=== PATIENT | male | born 1940 | race Caucasian/White ===

== ENCOUNTER 2022-06-21 14:57 | Outpatient (CLI) | payer MEDICARE, BC, SELFPAY | END 2022-06-21 14:58 | disposition home or self-care (01) | LOC: LKVREF 14:59 | PROVIDERS: PCP Internal Medicine; Visit Provider Otolaryngology | DX: Z00.00 Encounter for general adult medical examination without abnormal findings (principal); E78.5 Hyperlipidemia, unspecified; R05.9 Cough, unspecified | CPT/HCPCS: 84443 ==

== ENCOUNTER 2022-08-16 08:14 | Emergency (ER) | payer MEDICARE, BC, SELFPAY ==
[2022-08-16 08:21] VITALS: BP 181/79; PULSE 69; RESP 18; TEMP 36.2; O2SAT 96; BMI 23.1
--- NOTE | 2022-08-16 08:26 | CRLHL7_ITS ---
For Patients: As a result of the Century Cures Act, medical imaging exams and procedure reports are released immediately into your electronic medical record. You may view this report before your referring provider. If you have questions, please contact your health care provider. Indication: Trauma Technique: Three views of the right wrist were acquired Comparison: August 07, 2018 Findings: Bone mineral density is decreased. There arthritic changes primarily the 1st carpometacarpal joint. A fracture of the distal right radius is noted. This is comminuted, impacted and dorsally angulated and source displaced. There is positive ulnar variance. No definite distal ulnar fracture. Impression: Distal right radius fracture as described Dictated by Ernesto Yang MD @ 08/16/2022 9:11:16 AM (Electronically Signed)
--- NOTE | 2022-08-16 08:39 | CRLHL7_ITS ---
For Patients: As a result of the Century Cures Act, medical imaging exams and procedure reports are released immediately into your electronic medical record. You may view this report before your referring provider. If you have questions, please contact your health care provider. INDICATION: Trauma with laceration COMPARISON: September 09, 2021 TECHNIQUE: CT examination of the head was performed as axial sections without intravenous contrast. Images were obtained from the vertex of the skull through the skull base. Please note that all CT scans at this facility use dose modulation, iterative reconstruction, and/or weight-based dosing when appropriate to reduce radiation dose to as low as reasonably achievable. FINDINGS: The brain shows no sign of mass lesion, mass effect, hemorrhage, or edema. There are involutional changes. There is mild cortical atrophy and there is mild white matter disease. There is no hydrocephalus. The visualized portions of the orbits are normal in appearance. The osseous structures are normal in appearance with no sign of abnormality in the skull base or calvarium. IMPRESSION: Involutional changes consisting of atrophy white matter disease. The calvaria appear intact. There is no acute intracranial posttraumatic finding. Please note that all CT scans at this facility use dose modulation, iterative reconstruction, and/or weight-based dosing when appropriate to reduce radiation dose to as low as reasonably achievable. Dictated by Ernesto Yang MD @ 08/16/2022 9:32:08 AM (Electronically Signed)
[2022-08-16] MEDS: ACETAMINOPHEN 500 MG TABLET 1000 MG PO (09:11)
[2022-08-16] MEDS: LIDOCAINE 1 % PF 30 ML INJECTION (09:15)
--- NOTE | 2022-08-16 10:54 | CRLHL7_ITS ---
For Patients: As a result of the Cures Act, medical imaging exams and procedure reports are released immediately into your electronic medical record. You may view this report before your referring provider. If you have questions, please contact your health care provider. Indication: POST REDUCTION Technique: Two views right wrist Comparison: 08/16/2022 Findings: Closed reduction of the distal radial metaphyseal fracture with improved alignment. Mild persistent dorsal angulation of the distal radial articular surface noted. Overlying cast is present. Fracture of the ulnar styloid again noted. Degenerative joint disease. Impression: Improved alignment of the comminuted and displaced intra-articular and dorsally impacted distal radial metaphyseal fracture status post closed reduction. Dictated by Otoniel Hobbs MD @ 08/16/2022 11:25:23 AM (Electronically Signed)
--- NOTE | 2022-08-16 15:19 | ED_ITS ---
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 Unfortunately falls are her what happens with this, and yesterday he fell, after getting up, landing on his right outstretched hand, he was caring a plate and thinks he might hit the plate against his head, but is unsure if this actually what happened. He never lost consciousness, denies any head or neck pain, but presented here to the ER with the right deformed wrist. Denies any numbness tingling weakness, does notice he has a small laceration on his head, is not on any anticoagulants, denies neck pain or any other concerns such as headache or amnesia or nausea vomiting MD complaint: injury to: right Onset (ago): hour(s) Other injuries: head Hand dominance: Right Place: home Severity: moderate Relieving factors: cold therapy Exacerbating factors: none Context: fall Associated symptoms: denies other symptoms Treatments prior to arrival: cold therapy Related Data Home Medications Medication Instructions Recorded Confirmed SE-fgxovxkpvpe-smofbw ox-Zn ER 500 tab PO BID 04/26/22 06/21/22 mcg-750 mg-1.5 mg-25 mg tablet,ER brimonidine 0.2 % eye drops 1 drp ophthalmic (eye) BID 04/26/22 06/21/22 calcium carbonate-vitamin D3 600 1,200 tab PO DAILY 04/26/22 06/21/22 mg-125 unit tablet cyanocobalamin (vitamin B-12) 500 1,000 mcg PO DAILY 04/26/22 06/21/22 mcg tablet fluoxetine 10 mg tablet 10 mg PO .Bedtime 04/26/22 06/21/22 latanoprost 0.005 % eye drops 1 drp ophthalmic (eye) .Bedtime 04/26/22 06/21/22 multivitamin (Multiple Vitamins 1 tab PO QAM 04/26/22 06/21/22 tablet) omega-3 fatty acids 1,000 mg 1,000 mg PO QDAY 04/26/22 06/21/22 capsule omeprazole 20 mg capsule,delayed mg PO DAILY 04/26/22 06/21/22 release pyridostigmine bromide 30 mg tablet mg PO TID 04/26/22 06/21/22 simvastatin 40 mg tablet 40 mg PO .Bedtime 04/26/22 06/21/22 timolol maleate 0.25 % eye drops 1 drp ophthalmic (eye) BID 04/26/22 06/21/22 trazodone 50 mg tablet mg PO .Bedtime 04/26/22 06/21/22 Allergies Allergy/AdvReac Type Severity Reaction Status Date / Time No Known Allergies Allergy Verified 06/21/22 14:15 Review of Systems Status of ROS: Reports: 6 or more systems reviewed and unremarkable except as noted in History and below [facility] Surgical History History of squamous cell carcinoma in situ (SCCIS) of skin History of tonsillectomy (~1950) History of total knee replacement (2000) Social History Smoking Status: Former smoker Do you use any of these nicotine containing products: None How often do you have a drink containing alcohol: never How often do you have six or more drinks on one occasion: Never AUDIT-C Alcohol total score: 0 Non-prescribed substance use: denies use Exam Narrative: Exam Narrative: On examination patient is in no apparent distress sitting in room 5, there is a dinner fork deformity of his right wrist, his elbow moves for full range of motion, as does his fingers. His shoulder also has full range of motion, is a small bruise laceration just above his right eye, his neck is full range of motion of flexion extension lateral flexion rotation no cervical spine tenderness no midfacial tenderness, mouth opening normal, TMs are normal his pupils are equal round reactive to light. There is no tenderness noted over his a chest on palpation percussion is good air entry, heart sounds are normal, no trauma over his back, thoracic and lumbar spine palpate normally. Given what I see, I did do x-rays, which show a typical distal radial fracture with a dorsal fragment dorsally displaced and impacted. There is also small fracture noted the ulnar styloid. Given this I would recommend a reduction of this fracture, he has good pulses in his hand, both radial pulses are normal, and cap refill was normal his sensation is normal over all the signature dermatomal areas of his hand, with good 1st finger thumb opposition. 1% xylocaine without epinephrine is infused into a hematoma block on the dorsum of his wrist, this was done sterilely, resulted in fair anesthesia, he was also given acetaminophen. I was able to reduce the fracture 2 more amiable reduction, on review of the x-ray post reduction there was improvement, but there is still some very mild angulation and displacement. Post reduction fingers move normally, pulses were normal, radial and good cap refill are noted, sensation is normal over his hand, he is placed in a splint, short-arm AP, and sling, follow-up with orthopedics is made, let was applied to his head wound, but this was shown to be more of a scratch, and no laceration repair needed. Const: Vital Signs, click to edit/add: Vital Signs - 24 hr 08/16/22 08:21 Temperature 97.2 F L Pulse Rate [Left P ulse Oximeter] 69 Respiratory Rate 18 Blood Pressure [Le ft Upper Arm] 181/79 H Pulse Oximetry 96 Oxygen Delivery Me thod Room Air Course Vital Signs Vital signs: Initial Vital Signs Temperature 97.2 F L 08/16/22 08:21 Temperature Source Temporal Artery Scan 08/16/22 08:21 Pulse Rate 69 08/16/22 08:21 Respiratory Rate 18 08/16/22 08:21 Blood Pressure 181/79 H 08/16/22 08:21 Blood Pressure Mean 113 08/16/22 08:21 Blood Pressure Position Sitting 08/16/22 08:21 Pulse Oximetry 96 08/16/22 08:21 Oxygen Delivery Method 08/16/22 08:21 Vital Signs Temperature 97.2 F L 08/16/22 08:21 Pulse Rate 69 08/16/22 08:21 Respiratory Rate 18 08/16/22 08:21 Blood Pressure 181/79 H 08/16/22 08:21 Pulse Oximetry 96 08/16/22 08:21 Oxygen Delivery Method 08/16/22 08:21 Temperature 97.2 F L 08/16/22 08:21 Pulse Rate 69 08/16/22 08:21 Respiratory Rate 18 08/16/22 08:21 Blood Pressure 181/79 H 08/16/22 08:21 Pulse Oximetry 96 08/16/22 08:21 Oxygen Delivery Method 08/16/22 08:21 Discharge Plan Discharge Clinical Impression: Fracture of wrist, Laceration, Head injury Patient Disposition: Home w/ Parent or Adult Additional Instructions: Follow up appointment is scheduled at the [facility] on 08/18 with a 3:50pm arrival time. [address] [place] [address] Home rest use of sling for the next 3-4 days, follow-up with the orthopedic clinic as directed above. Tylenol/ibuprofen for the discomfort, Prescriptions: No Action pyridostigmine bromide 30 mg tablet PO TID omeprazole 20 mg capsule,delayed release(DR/EC) PO DAILY simvastatin 40 mg tablet 40 mg PO .Bedtime fluoxetine 10 mg tablet 10 mg PO .Bedtime trazodone 50 mg tablet PO .Bedtime NW-rbavjiqshfv-emrvnk ox-zinc 500-750-1.5-25 gkm-gz-iy-mg tablet,ext release multiphase PO BID multivitamin [Multiple Vitamins] Tablet 1 tab PO QAM latanoprost 0.005 % drops 1 drp ophthalmic (eye) .Bedtime timolol maleate 0.25 % drops 1 drp ophthalmic (eye) BID brimonidine 0.2 % drops 1 drp ophthalmic (eye) BID cyanocobalamin (vitamin B-12) 500 mcg tablet 1,000 mcg PO DAILY omega-3 fatty acids 1,000 mg capsule 1,000 mg PO QDAY calcium carbonate-vitamin D3 600-125 mg-unit tablet 1,200 tab PO DAILY Follow Up/Referrals: Fortino Handy MD [Staff Physician] - Lizzie Aj MD [Primary Care Provider] - Terrence Sierra MD [Staff Physician] - Stand Alone Forms: [facility] Info Instructions
== END 2022-08-16 12:07 | disposition home or self-care (01) ==
PROVIDERS: Emergency Provider Family Medicine; PCP Internal Medicine
DX: S52.501A Unspecified fracture of the lower end of right radius, initial encounter for closed fracture (principal); S52.614A Nondisplaced fracture of right ulna styloid process, initial encounter for closed fracture; W19.XXXA Unspecified fall, initial encounter
CPT/HCPCS: 25650; 70450; 73100; 73110; 93005; 99284; 99285; A9270; J2001

== ENCOUNTER 2022-08-29 07:10 | Day surgery (SDC) | payer MEDICARE, BC, SELFPAY ==
[2022-08-29] VITALS (11 sets, daily range): BP systolic 79–140; BP diastolic 35–70; PULSE 52–86; RESP 16; TEMP 35.9–36.2; O2SAT 92–100; BMI 23.6
[2022-08-29] MEDS: SODIUM CHLORIDE 0.9 % (FLUSH) 10 ML SYRINGE IVF (07:44)
[2022-08-29] MEDS: LACTATED RINGERS 1000 ML 1,000 ML 100 ML IV (07:44)
[2022-08-29] MEDS: fentaNYL 100 MCG/2 ML inj IVP (08:25)
[2022-08-29] MEDS: MIDAZOLAM HCL 1 MG/ML inj IVP (08:25)
--- NOTE | 2022-08-29 08:39 | SUR.PREOP ---
TIME?OUT:?0825 PT/RN/MDA?VERIFICATION?OF?SURGICAL?SITE,?PROCEDURE,?AND?CONSENT OBTAINED?PRIOR?TO?INVASIVE?PROCEDURE.
--- NOTE | 2022-08-29 09:08 | P.NB_ITS ---
Nerve Block Nerve Block Time Seen by Provider: 08:40 Date Seen: 08/29/22 Type of block requested by surgeon for post-operative analgesia: axillary Side: right Time out performed: Yes Verification of patient name: Yes Verification of date of : Yes Site marking: site marked Name of person performing procedure: Ollie Continuous monitoring Was continuous monitoring of O2 sat, B/P, monitor technician, recorded every 15 minutes?: Yes Procedure Checklist: sterile prep, needles and gloves Ultrasound guided. Images saved: Yes Medications given in 5ml increments after negative aspiration: Ropivicaine %: 0.5 mL: 30 Needle gauge: 22 Decadron (mg): 10 Precedex (mcg): 25 Patient tolerated procedure well: Yes Additional comments: Needle noted adjacent to nerve Block Charges Block Charge (with Pro Fee): Brachial Plexus Use of Ultrasound Machine for Block: Yes- US Guidance/pain block
--- NOTE | 2022-08-29 09:30 | CRLHL7_ITS ---
For Patients: As a result of the Cures Act, medical imaging exams and procedure reports are released immediately into your electronic medical record. You may view this report before your referring provider. If you have questions, please contact your health care provider. Indication: Right Distal Radius Fx, ORIF Technique: Two fluoroscopic images of the right wrist. Fluoroscopic time 33.1 seconds. IMPRESSION: Fluoroscopic guidance for open reduction internal fixation distal radial fracture. Dictated by Otoniel Hobbs MD @ 08/29/2022 11:26:58 AM (Electronically Signed)
[2022-08-29] MEDS: CEFAZOLIN 2 GM in 0.9 % SODIUM CHLORIDE Mini-bag 100 ML IVPB (09:35)
--- NOTE | 2022-08-29 10:35 | PM.ORPRC ---
Procedure Note Date of procedure: 08/29/22 Procedure: PREOPERATIVE DIAGNOSES: 1. Right distal radius fracture intraarticular with comminution and dorsal angulation/displacement - unstable POSTOPERATIVE DIAGNOSES: 1. Right distal radius fracture intraarticular with comminution and dorsal angulation/displacement - unstable, 3+ parts NAME OF OPERATION: 1. Right distal radius open reduction with internal fixation of intraarticular fracture (3+ parts) 2. 97280 - intraoperative fluoroscopy up to 1 hour. SURGEON: Fortino aHndy MD DIESEL POWER MECHANIC: Pk Kitchen - Of note, an education administrative assistant was critical for this case to aide in patient positioning, limb manipulation, tissue retraction, closure, and splinting. ANESTHESIA: Supraclavicular block IMPLANTS: Synthes dual column volar plate with 2.0 mm distal locking pegs and 2.4 and 2.7 mm locking and nonlocking proximal shaft screws, respectively. TOURNIQUET: 39 minutes at 225 torr. INDICATIONS: The patient is a pleasant, 82-year-old male who sustained a right wrist injury after a fall. They had difficulty with use of the extremity and deformity. Workup included xrays which revealed an unstable fracture. Given these findings, surgery was recommended to stablize the fracture. FINDINGS: Closed, comminuted, dorsally angulated and displaced distal radius fracture with intra-articular extension to the radial styloid region. PROCEDURE: Following a thorough discussion of risks, benefits, and alternatives, consent was obtained and the operative extremity was marked. The patient was brought to the operating room and placed supine on the operating table. Induction of anesthesia was achieved. Appropriate time out was performed identifying proper patient, site and procedure. 2 g IV Ancef was administered within 1 hour of incision preoperatively. The right upper extremity was prepped and draped in the appropriate sterile fashion using ChloraPrep prep. The limb was exsanguinated and the tourniquet inflated. A longitudinal incision was made overlying the FCR tendon. Sharp incision through skin and subcutaneous tissue allowed identification of the FCR tendon. The superficial sheath was sharply divided, the tendon retracted ulnarly, and the deep fascial sheath also released. The FPL was retracted ulnarly and the pronator quadratus was sharply released from the radial border of the radius and subperiosteally elevated. The fracture was encountered and cleared of interposed periosteum / fracture hematoma. A reduction was performed and the appropriate plate selected. Temporary stabilization allowed C-arm fluoroscopy to confirm proper fracture reduction and plate positioning. The oblong hole was filled with a nonlocking screw followed by multiple distal locking pegs being careful to keep these in subchondral bone and extraarticular. Finally, the remaining proximal shaft screws were drilled and placed. Fluoroscopic imaging confirmed the improved position and showed the fracture to be stable. At this stage, the wound was thoroughly irrigated with normal saline. Closure performed with 0 Vicryl for the pronator quadratus, followed by deflation of the tourniquet. All major bleeding points were cauterized. Closure was then completed with 3-0 Vicryl for the subcutaneous, and 4-0 statafix for subcuticular closure. Dressings were applied along with a volar/dorsal splint. The patient was awoken from anesthesia and transferred to PACU in stable condition. PLAN: 1. Elevate operative extremity. 2. Ice, acetominphen or ibuprofen PRN. 3. Percocet for pain as needed. 4. Follow up with PA visit in 10-16 days for wound check and splint removal and cast application. Should have a total of 3 weeks of immobilization following surgery. Therefore, follow-up at the 3 week loco postop for cast removal and initiate occupational therapy with brace at that time.
--- NOTE | 2022-08-29 11:03 | W.ANESCHARGE ---
Anesthesia Charges Start Date/Time Anesthesia Start Date: 08/29/22 Anesthesia Start Time: 09:23 Stop Date/Time Anesthesia Stop Date: 08/29/22 Anesthesia Stop Time: 11:03 Summary Emergency: No Extremes of Age: Over 70-CPT 99794
--- NOTE | 2022-08-29 11:56 | W.ANESCHARGE ---
Anesthesia Charges Start Date/Time Anesthesia Start Date: 08/29/22 Anesthesia Start Time: 09:23 Stop Date/Time Anesthesia Stop Date: 08/29/22 Anesthesia Stop Time: 11:03 Summary Emergency: No Extremes of Age: Over 70-CPT [id number]
--- NOTE | 2022-08-29 12:07 | SUR.PHASEII ---
Right arm dressing c/d/i. Right arm in sling.
== END 2022-08-29 12:30 | disposition home or self-care (01) ==
PROVIDERS: PCP Internal Medicine; Visit Provider Orthopaedic Surgery Sports Medicine
PROC: (CPT 25575; principal; 2022-08-29 09:30)
DX: S52.571A Other intraarticular fracture of lower end of right radius, initial encounter for closed fracture (principal)
CPT/HCPCS: 25609; 01830; 64415; 73100; 76000; 76942; 99100; A4580; C1713; J0690; J1100; J2250; J2704; J2795; J3010; J3490; J7120

== ENCOUNTER 2022-12-08 09:57 | Outpatient (CLI) | payer MEDICARE, BC, SELFPAY ==
[2022-12-08 11:22] LABS: Albumin* 3.9 g/dL (3.3-5.0)
[2022-12-08 11:23] LABS: Chloride* 108 mmol/L (96-114); Potassium* 4.7 mmol/L (3.6-5.1); Sodium* 140 mmol/L (135-149)
[2022-12-08 11:25] LABS: Carbon Dioxide* 30 mmol/L (20-32); Cholesterol* 134 mg/dL (90-199); Estimated Glomerular Filt Rate 75 ml/min
[2022-12-08 11:26] LABS: Alanine Aminotransferase* 19 U/L (4-50); Alkaline Phosphatase* 91 U/L (40-150); Aspartate Amino Transferase* 31 U/L (12-35); Bilirubin Total* 0.8 mg/dL (0.1-1.5); Blood Urea Nitrogen* 20 mg/dL (7-30); Calcium* 9.4 mg/dL (8.4-10.6); Glucose* 101 mg/dL (60-115); HDL Cholesterol* 55 mg/dL (>=40); LDL Cholesterol Calculated 63 mg/dL (<100); Total Protein* 6.5 g/dL (6.0-8.3); Triglycerides* 80 mg/dL (40-149)
[2022-12-10 09:37] LABS: Kappa Qnt Free Light Chains 23.35 mg/L (3.30-19.40); Kappa-Lambda Qt FLC W/ Ratio 1.77 (0.26-1.65); Lambda Qnt Free Light Chains 13.22 mg/L (5.71-26.30)
[2022-12-12 01:51] LABS: Albumin 3.72 g/dL (3.75-5.01); Alpha 1 Globulin 0.36 g/dL (0.19-0.46); Alpha 2 Globulin 0.73 g/dL (0.48-1.05); Immunofixation IFE Done; Total Protein, Serum 6.3 g/dL (6.3-8.2)
== END 2022-12-08 09:58 | disposition home or self-care (01) ==
LOC: NFLDREF 09:57
PROVIDERS: PCP Internal Medicine; Visit Provider Internal Medicine
DX: Z00.00 Encounter for general adult medical examination without abnormal findings (principal); E78.5 Hyperlipidemia, unspecified; D47.2 Monoclonal gammopathy; F41.9 Anxiety disorder, unspecified
CPT/HCPCS: 80053; 80061; 82784; 83520; 84155; 84165; 86334

== ENCOUNTER 2023-07-26 13:32 | Outpatient (CLI) | payer MEDICARE, BC, SELFPAY | END 2023-07-26 13:33 | disposition home or self-care (01) | PROVIDERS: PCP Internal Medicine; Visit Provider Internal Medicine | DX: R15.9 Full incontinence of feces (principal); E78.5 Hyperlipidemia, unspecified; R79.89 Other specified abnormal findings of blood chemistry; R19.7 Diarrhea, unspecified; R82.90 Unspecified abnormal findings in urine | CPT/HCPCS: 80053; 84443; 87086 ==

== ENCOUNTER 2023-12-19 10:08 | Outpatient (CLI) | payer MEDICARE, BC, SELFPAY ==
--- OUTSIDE RECORDS SUMMARY | 2023-12-20 06:06 | XMS_ITS | Clinical Summary ---
Author Name Unknown Organization [facility] Address [address] [place] [id number] Care Team Providers Care Fitness Coordinator Name Role Phone Lizzie Aj MD Primary Care Provider [phone] Source Comments You are receiving this document as you are listed as the primary care provider,follow-up provider, or the patient has been referred to you for consultation.This is in compliance with the Medicare and[facility] E[facility] Incentive Program,which states Providers who transition their patient to another setting of careor provider of care or refers their patient to another provider of care shouldprovide summary care record for each transition of care or referral. [facility] Allergies No known active allergies Medications Medication Sig Dispensed Refills Start Date End Date Status pramipexole (MIRAPEX) 0.25 MG tablet Take 0.25 mg by mouth three times a day. Active FLUoxetine (PROZAC) 10 MG tablet Take 10 mg by mouth daily. Pharmacy may substitute capsule as needed based on insurance. Active MELATONIN-PYRIDOXINE OR Active simvastatin (ZOCOR) 40 MG tablet Take 40 mg by mouth daily at bedtime. Active omeprazole (PRILOSEC) 20 MG capsule Take 20 mg by mouth daily. Take 1 hour before a meal. Active traZODone (DESYREL) 50 MG tablet Take 50 mg by mouth daily at bedtime. Active CALCIUM CARBONATE-VITAMIN D OR Active latanoprost (XALATAN) 0.005 % eye drop solution 1 Drop every evening. Active ascorbic acid (AKA VITAMIN C) 100 MG tablet Take 1,000 mg by mouth daily. Active Cyanocobalamin 1000 MCG CAPS Active raNITIdine (ZANTAC) 150 MG tablet Take 150 mg by mouth two times a day. Active multivitamin with minerals (CERTAVITE,MYADEC) tablet Take 1 Tablet by mouth daily. Active omega-3 fatty acids (MAXEPA,FISHOIL) 1000 MG capsule Take 2 g by mouth daily. Active Multiple Vitamins-Minerals (PRESERVISION AREDS 2+MULTI VIT OR) Active ferrous sulfate 325 (65 Fe) MG tablet Take 325 mg by mouth daily with breakfast. Active levETIRAcetam (KEPPRA) 250 MG tablet Take 250 mg by mouth two times a day. 3 06/29/2018 Active Active Problems Problem Noted Date Diagnosed Date Tinnitus of left ear 08/22/2018 Gait instability 08/22/2018 DJD (degenerative joint disease) 04/20/2012 Hyperlipidemia 04/20/2012 S/P hip replacement 04/20/2012 Overview: Overview: R, 04-16-12 Social History Tobacco Use Types Packs/Day Years Used Date Smoking Tobacco: Never Assessed Sex and Gender Information Value Date Recorded Sex Assigned at Not on file Gender Identity Not on file Sexual Orientation Not on file Last Filed Vital Signs Vital Sign Reading Time Taken Comments Blood Pressure 132/71 08/22/2018 10:17 AM CDT Pulse 68 08/22/2018 10:17 AM CDT Temperature - - Respiratory Rate - - Oxygen Saturation - - Inhaled Oxygen Concentration - - Weight 87.5 kg (193 lb) 08/22/2018 10:17 AM CDT Height 190.5 cm (6' 3) 08/22/2018 10:17 AM CDT Body Mass Index 24.12 08/22/2018 10:17 AM CDT Plan of Treatment Health Maintenance Due Date Last Done Comments Medicare Annual Wellness Visit 1940 COVID-19 Vaccine ( season) 2023 12/26/2020, 12/05/2020 Influenza (#1) 2023 08/25/2020, 04/2019, 08/29/2018, Additional history exists DTaP/Tdap/Td (3 - Tdap) 03/30/2025 03/30/2015, 04/09 Pneumococcal 65+ Yrs Completed 08/05/2016, 03/30/20 15 Zoster/Shingles Completed 05/15/2019, /, 02/27/2007 HepA Aged Out No longer eligi ble based on patient's age to complete this topic HepB Aged Out No longer eligi ble based on patient's age to complete this topic Hib Aged Out No longer eligi ble based on patient's age to complete this topic IPV (Polio) Aged Out No longer eligi ble based on patient's age to complete this topic MCV4 Aged Out No longer eligi ble based on patient's age to complete this topic Care Teams Fitness Coordinator Relationship Specialty Start Date End Date Lizzie Aj MD [address] [place] [address] PCP - General Internal Medicine 08/06/18
--- OUTSIDE RECORDS SUMMARY | 2023-12-20 06:06 | XMS_ITS | Clinical Summary ---
Author Name Unknown Organization [facility] Address [place], [place] [address] Care Team Providers Care Circuit Design Engineer Name Role Phone Lizzie Aj MD Primary Care Provider [phone]- [phone] Allergies No known active allergies Medications Medication Sig Dispensed Refills Start Date End Date Status Ad-Zk-Vliamnq-Biotin -Vit D3-FA 200-450-400 mg-mcg-unit tab Take by mouth. 0 04/01/2014 Activ e omega-3 fatty acids-vitamin E (FISH OIL) 1,000 mg cap Take by mouth. 0 04/01/2014 Active simvastatin (ZOCOR) 40 mg tablet Take 1 tablet by mouth at bedtime. 0 06/02/2016 Active Vit A,C,A-Puvq-Sqquke (PRESERVISION AREDS) 14,320-226-200 vops-bh-dtbg cap Take by mouth. 0 06/02/2016 Acti ve ascorbic acid, vitamin C, (VITAMIN C) 1,000 mg tablet Take 1 tablet by mouth once daily. 0 06/02/2016 Active cholecalciferol (VITAMIN D-3) 2,000 unit capsule Take 1 capsule by mouth once daily. 0 06/02/2016 Active Cyanocobalamin (VITAMIN B-12) 2,000 mcg tablet Take 1 tablet by mouth once daily. 0 06/02/2016 Active ranitidine (ZANTAC) 150 mg tablet Take 1 tablet by mouth 2 times daily. 0 06/02/2016 Active calcium carbonate-cholecalci ferol, 600mg-200 units, (CALCIUM 600 + D,3,) tablet Take 1 tablet by mouth 2 times daily with meals. 0 06/02/2016 Active omeprazole (PRILOSEC) 20 mg Delayed-Release capsuleIndications:A cute gastritis without hemorrhage TAKE 1 CAPSULE BY MOUTH ONCE DAILY BEFORE A MEAL. 90 capsule 3 07/27/2016 Active traZODone (DESYREL) 50 mg tablet Take 1 tablet by mouth at bedtime. 0 04/12/2018 Active Pramipexole (MIRAPEX ER) 0.375 mg Extended-Release tablet Take by mouth. 0 04/12/2018 Active FLUoxetine (SARAFEM) 20 mg tablet Take 1 tablet by mouth every morning. 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 04/20/2012 Overview: Colonoscopy 02/2010 mild ileitis repeat in 5 years Social History Tobacco Use Types Packs/Day Years Used Date Smoking Tobacco: Former Smokeless Tobacco: Never Tobacco Cessation:Counseling Given: Yes Comments:over 40 years ago Alcohol Use Standard Drinks/Week Comments Yes 7 (1 standard drink = 0.6 oz pur e alcohol) occ Sex and Gender Information Value Date Recorded Sex Assigned at Not on file Gender Identity Not on file Sexual Orientation Not on file Obstetrics History Last Filed Vital Signs Vital Sign Reading Time Taken Comments Blood Pressure 122/60 04/12/2018 2:28 PM CDT Pulse 74 04/12/2018 2:28 PM CDT Temperature 36.4 ??C (97.5 ??F) 08/24/2016 8:58 AM CD T Respiratory Rate 20 04/25/2012 3:29 PM CDT Oxygen Saturation 97% 04/12/2018 2:28 PM CDT Inhaled Oxygen Concentration - - Weight 86.9 kg (191 lb 9.6 oz) 04/12/2018 2:28 P M CDT Height 189.5 cm (6' 2.6) 06/02/2016 10:32 AM CD T Body Mass Index 24.21 06/02/2016 10:32 AM CDT Plan of Treatment Health Maintenance Due Date Last Done Comments Tdap 1950 Depression screening for age 12+ 1951 Tetanus booster 1959 Zoster (shingles) series for age 50+ (1 of 2) 1989 Pneumococcal series for age 65+ (1 of 1 - PCV) 2004 BMI (ht and wt on same day) for age 18+ 06/02/2017 06/02/2016 COVID-19 vaccine series ( season) 2023 08/05/2021, 12/26/2020, 12/05/2020 Influenza for age 65+ 06/30/2023 Care Teams Circuit Design Engineer Relationship Specialty Start Date End Date Lizzie jA MD [address] [place] [address] PCP - General Internal Medicine 06/07/16
== END 2023-12-19 10:09 | disposition home or self-care (01) ==
PROVIDERS: PCP Internal Medicine; Referring Provider Internal Medicine; Visit Provider Internal Medicine
DX: E78.5 Hyperlipidemia, unspecified (principal); D47.2 Monoclonal gammopathy
CPT/HCPCS: 80053; 80061; 82784; 83520; 84155; 84165; 86334

== ENCOUNTER 2024-03-11 12:17 | Emergency (ER) | payer MEDICARE, BC, SELFPAY ==
[2024-03-11 12:26] VITALS: BP 117/68; PULSE 81; RESP 16; TEMP 36.4; O2SAT 96; BMI 21.9
--- NOTE | 2024-03-11 13:05 | ED_ITS ---
HPI - Nausea/Vomiting/Diarrhea General Chief complaint: Diarrhea Stated complaint: lost control of bowels Time Seen by Provider: 03/11/24 12:47 History of Present Illness HPI Narrative: This 83-year-old male comes in reporting numerous episodes of spontaneous diarrhea that he has not been able to control. This is occurred over the past 2-3 days. He does not report any fevers. He has been able to take food and drink normally. He does not have any blood in the toilet. He he also does not report any pain. He has been taking Imodium without much relief. Related Data Home Medications Medication Instructions Recorded Confirmed ML-ejnzwubzebj-pwpqbx ox-Zn ER 500 tab PO BID 04/26/22 12/25/23 mcg-750 mg-1.5 mg-25 mg tablet,ER brimonidine 0.2 % eye drops 1 drp ophthalmic (eye) BID 04/26/22 03/11/24 calcium carbonate-vitamin D3 600 1,200 tab PO DAILY 04/26/22 03/11/24 mg-125 unit tablet cyanocobalamin (vitamin B-12) 500 1,000 mcg PO DAILY 04/26/22 03/11/24 mcg tablet latanoprost 0.005 % eye drops 1 drp ophthalmic (eye) .Bedtime 04/26/22 03/11/24 omega-3 fatty acids 1,000 mg 1,000 mg PO QDAY 04/26/22 03/11/24 capsule pyridostigmine bromide 60 mg tablet 60 mg PO TID 08/10/23 03/11/24 timolol maleate 0.25 % eye drops 1 drp ophthalmic (eye) ONCE 08/10/23 03/11/24 timolol maleate 0.5 % eye drops 1 drp ophthalmic (eye) 12/25/23 12/25/23 Previous Rx's Medication Instructions Recorded omeprazole 20 mg capsule,delayed 20 mg PO DAILY #90 caps 12/25/23 release simvastatin 40 mg tablet 40 mg PO .Bedtime #90 tabs 12/25/23 trazodone 50 mg tablet 100 mg (2 x 50 mg) PO .Bedtime 12/25/23 #180 tabs fluoxetine 10 mg capsule 10 mg PO QHS #90 caps 02/21/24 diphenoxylate-atropine 2.5 1 tab PO Q6-8H PRN diarrhea #20 03/11/24 mg-0.025 mg tablet (Lomotil) tabs Allergies Allergy/AdvReac Type Severity Reaction Status Date / Time No Known Allergies Allergy Verified 03/11/24 12:43 Review of Systems Status of ROS: Reports: 10 or more systems reviewed and unremarkable except as noted in History and below Narrative: Constitutional: No fevers, no weight gain or loss. Eyes: No discharge. No vision changes. HENT: No congestion, no sore throat, no ear pain. Cardiovascular: No chest pain, no palpitations. Respiratory: No shortness of breath, no wheezes, no cough. Gastrointestinal: No abdominal pain, no vomiting. Diarrhea as described above. Genitourinary: No dysuria, no hematuria. Musculoskeletal: Normal range of motion. Skin: No rashes, no pruritis. Neurological: No dizziness, weakness, sensory change, speech change. Endo/Heme/Allergies: No bruising or bleeding. No polydipsia. Pysch: no suicidality, no anxiety, no insomnia. All other systems reviewed and are negative. PFSH [facility] Surgical History (Updated 12/13/22 @ 13:12 by Lizzie Aj MD) History of surgery on right wrist ?Z98.890 - Other specified postprocedural states (ICD-10) History of squamous cell carcinoma in situ (SCCIS) of skin ?Z86.007 - Personal history of in-situ neoplasm of skin (ICD-10) History of total knee replacement (2000) ?Z96.659 - Presence of unspecified artificial knee joint (ICD-10) History of tonsillectomy (~1950) ?Z90.89 - Acquired absence of other organs (ICD-10) Social History (Updated 12/25/23 @ 15:46 by Elizabeth Bateman ~ CTA) What is your current living situation?: I presently have a place to live Problems where you live: no known problems In the past 12 months, utilities in danger of being shut off: no In past 12 months, lack of transportation kept you from medical appts, meetings, work, or getting things needed for daily living: no In the past 12 mos, have been you worried that your food would run out before you had money to buy more?: never true In the past 12 mos, the food you bought just didn't last and you didn't have money to buy more?: never true Smoking Status: Never smoker Do you use any of these nicotine containing products: None How often do you have a drink containing alcohol: 4 or more times a week Alcohol type: beer How many standard drinks containing alcohol do you have on a typical day: 1 or 2 How often do you have six or more drinks on one occasion: Never AUDIT-C Alcohol total score: 4 Non-prescribed substance use: denies use Caffeine: No How often does anyone, including family, friends and others, physically hurt you : never How often does anyone, including family, friends and others, insult or talk down to you: never How often does anyone, including family, friends and others, threaten you with harm: never How often does anyone, including family, friends and others, scream or curse at you: never Little interest or pleasure in doing things: not at all Feeling down, depressed, or hopeless: not at all Exam Narrative: Exam Narrative: Constitutional: Well-developed, well-nourished, no acute distress. HEENT: Normocephalic, atraumatic. Neck: Normal range of motion. Nontender. Supple. Heart: Regular. No murmurs. Normal rate. Intact distal pulses. Lungs: Clear to auscultation. No chest discomfort. No wheezes, rhonchi, or rales. Abdomen: Normal bowel sounds. Nontender. No rebound tenderness. Genitalia: Deferred. Back: No midline tenderness. Normal range of motion. Extremities: Normal range of motion. No injury. Skin: Intact. No rash. Warm. No erythema or pallor. Neurologic: No altered sensation. No weakness. Alert and oriented. Psychiatric: No suicidality. No anxiety or depression. No insomnia. Nursing notes and vitals signs are reviewed. Const: Vital Signs, click to edit/add: Vital Signs - 24 hr 03/11/24 12:26 Temperature 97.5 F L Pulse Rate [Pulse Oximeter] 81 Respiratory Rate 16 Blood Pressure [Ri ght Upper Arm] 117/68 Pulse Oximetry 96 Oxygen Delivery Me thod Room Air Course Vital Signs Vital signs: Initial Vital Signs Temperature 97.5 F L 03/11/24 12:26 Temperature Source Temporal Artery Scan 03/11/24 12:26 Pulse Rate 81 03/11/24 12:26 Respiratory Rate 16 03/11/24 12:26 Blood Pressure 117/68 03/11/24 12:26 Blood Pressure Mean 84 03/11/24 12:26 Blood Pressure Position Sitting 03/11/24 12:26 Pulse Oximetry 96 03/11/24 12:26 Oxygen Delivery Method Room Air 03/11/24 12:26 Vital Signs Temperature 97.5 F L 03/11/24 12:26 Pulse Rate 81 03/11/24 12:26 Respiratory Rate 16 03/11/24 12:26 Blood Pressure 117/68 03/11/24 12:26 Pulse Oximetry 96 03/11/24 12:26 Oxygen Delivery Method Room Air 03/11/24 12:26 Temperature 97.5 F L 03/11/24 12:26 Pulse Rate 81 03/11/24 12:26 Respiratory Rate 16 03/11/24 12:26 Blood Pressure 117/68 03/11/24 12:26 Pulse Oximetry 96 03/11/24 12:26 Oxygen Delivery Method Room Air 03/11/24 12:26 MDM - Nausea/Vomiting/Diarrhea MDM Narrative Medical decision making narrative: This patient comes in with uncontrolled diarrhea over the past 2 or 3 days. He has been taking Imodium without any real improvement. He arrives here with normal vital signs and otherwise is asymptomatic. I did discuss the role of labs and IV fluids. For now he is interested in receiving a prescription to help treat his current symptoms and will return if not improving or worsening symptoms happen. I did provide prescription for Lomotil and he understands that this is not a good long-term plan but hopefully will help him with his current symptoms. I also recommended that he use a fiber additive such as Metamucil, Benefiber, or Citrucel to help normalize his stools. Discharge Plan Discharge Clinical Impression: Diarrhea Patient Disposition: Home, Self-Care Condition: Unchanged Additional Instructions: Take medication as needed and directed. Resume normal diet as tolerated. Follow up with MD or return if symptoms are persistent or worsening. Prescriptions: New diphenoxylate-atropine [Lomotil] 2.5-0.025 mg tablet 1 tab PO Q6-8H PRN (Reason: diarrhea) Qty: 20 0RF No Action SP-csdrwfzlsnu-xhaqry ox-zinc 500-750-1.5-25 axp-tb-tz-mg tablet,ext release multiphase PO BID latanoprost 0.005 % drops 1 drp ophthalmic (eye) .Bedtime brimonidine 0.2 % drops 1 drp ophthalmic (eye) BID cyanocobalamin (vitamin B-12) 500 mcg tablet 1,000 mcg PO DAILY omega-3 fatty acids 1,000 mg capsule 1,000 mg PO QDAY calcium carbonate-vitamin D3 600-125 mg-unit tablet 1,200 tab PO DAILY timolol maleate 0.25 % drops 1 drp ophthalmic (eye) ONCE pyridostigmine bromide 60 mg tablet 60 mg PO TID timolol maleate 0.5 % drops 1 drp ophthalmic (eye) Patient Comments: [NO ORIGINAL SIG] simvastatin 40 mg tablet 40 mg PO .Bedtime Qty: 90 3RF trazodone 50 mg tablet 100 mg PO .Bedtime Qty: 180 3RF omeprazole 20 mg capsule,delayed release(DR/EC) 20 mg PO DAILY Qty: 90 3RF fluoxetine 10 mg capsule 10 mg PO QHS Qty: 90 2RF Follow Up/Referrals: Lizzie Aj MD [Primary Care Provider] - Stand Alone Forms: [facility] Info Instructions
--- OUTSIDE RECORDS SUMMARY | 2024-03-11 13:16 | XMS_ITS | Clinical Summary ---
Author Name Unknown Organization [employer] [facility] Address [place], [place] [address] Care Team Providers Care Cloth Brushing And Sueding Supervisor Name Role Phone Lizzie Aj MD Primary Care Provider [phone]- [phone] Allergies No known active allergies Medications Medication Sig Dispensed Refills Start Date End Date Status Ry-Ya-Sxyqric-Biotin -Vit D3-FA 200-450-400 mg-mcg-unit tab Take by mouth. 0 04/01/2014 Acti ve omega-3 fatty acids-vitamin E (FISH OIL) 1,000 mg cap Take by mouth. 0 04/01/2014 Active simvastatin (ZOCOR) 40 mg tablet Take 1 tablet by mouth at bedtime. 0 06/02/2016 Active Vit A,C,B-Ypks-Firgdn (PRESERVISION AREDS) 14,320-226-200 zddr-rz-cxfp cap Take by mouth. 0 06/02/2016 Acti [...] 04/25/2012 S/P hip replacement 04/20/2012 Overview: R, 6 Insomnia, unspecified 04/20/2012 Hyperlipidemia 04/20/2012 DJD (degenerative [...] 08/05/2021, 12/26/2020, 12/05/2020 Influenza for age 65+ 06/30/2024 Care Teams Cloth Brushing And Sueding Supervisor Relationship Specialty Start Date End Date Lizzie Aj MD [address] [place] [address] PCP - General Internal Medicine 06/07/16
--- OUTSIDE RECORDS SUMMARY | 2024-03-11 13:16 | XMS_ITS | Clinical Summary ---
Author Name Unknown Organization [facility] Address [address] [place] [id number] Care Team Providers Care Continuous Mining Machine Coal Miner Name Role Phone Lizzie Aj MD Primary Care Provider [phone]- [phone] Source Comments You are receiving this document as you are listed as the primary care provider,follow-up provider, or the patient has been referred to you for consultation.This is in compliance with the Medicare and[facility] Incentive Program,which states Providers who [...] Vaccine ( season) 2023 12/26/2020, 12/05/2020 Influenza (Season Ended) 2024 020, 08/05/2019, 08/29/2018, Additional history exists DTaP/Tdap/Td (3 - Tdap) 03/30/2025 03/30/2015, 04/09 Pneumococcal 65+ Yrs Completed 08/05/2016, 03/30/20 15 Zoster/Shingles Completed 05/15/2019, 12/29, 02/27/2007 HepA Aged Out No longer eligi [...] age to complete this topic Care Teams Continuous Mining Machine Coal Miner Relationship Specialty Start Date End Date Lizzie Aj MD [address] [place] [address] PCP - General Internal Medicine 08/06/18
== END 2024-03-11 13:19 | disposition home or self-care (01) ==
LOC: ED 13:14
PROVIDERS: Emergency Provider Emergency Medicine Emergency Medical Services; PCP Internal Medicine
DX: R19.7 Diarrhea, unspecified (principal)
CPT/HCPCS: 99283; 99284

== ENCOUNTER 2024-03-15 10:02 | Emergency (ER) | payer MEDICARE, BC, SELFPAY ==
[2024-03-15 10:32] VITALS: BP 107/66; PULSE 77; RESP 18; TEMP 36.1; O2SAT 96; BMI 22.4
--- NOTE | 2024-03-15 11:07 | ED_ITS ---
HPI - General Adult General Chief complaint: Diarrhea Stated complaint: diarrhea Time Seen by Provider: 03/15/24 11:07 History of Present Illness HPI narrative: here about 1 week ago. having continuous diarrhea since. medications have not been helping. 83-year-old man presenting to the emergency department with concern of diarrhea. He is losing control and just throwing away his underwear numerous times over the day or night. Not feeling particularly more weak. Was seen here for 5 days ago and initiated on Lomotil. Had been taking loperamide prior. Labs and IV fluids were not done at that time. No fever. No vomiting. No abdominal pain. Does note a twin brother with a history of Crohn's. His own last colonoscopy was done about 15 years ago. No known illness exposures. No recent antibiotics he says. This diarrhea is becoming particularly troublesome. No hematochezia or melena. Has been intermittently taking 3 tbsp of Benefiber and minimal water. Related Data Home Medications ?Medication ?Instructions ?Recorded ?Confirmed EX-pkthxqpztvs-rrezsi ox-Zn ER 500 tab PO BID 04/26/22 12/25/23 mcg-750 mg-1.5 mg-25 mg tablet,ER brimonidine 0.2 % eye drops 1 drp ophthalmic (eye) BID 04/26/22 03/20/24 calcium carbonate-vitamin D3 600 1,200 tab PO DAILY 04/26/22 03/20/24 mg-125 unit tablet cyanocobalamin (vitamin B-12) 500 1,000 mcg PO DAILY 04/26/22 03/20/24 mcg tablet latanoprost 0.005 % eye drops 1 drp ophthalmic (eye) .Bedtime 04/26/22 03/20/24 omega-3 fatty acids 1,000 mg 1,000 mg PO QDAY 04/26/22 03/20/24 capsule pyridostigmine bromide 60 mg tablet 60 mg PO TID 08/10/23 03/20/24 timolol maleate 0.25 % eye drops 1 drp ophthalmic (eye) ONCE 08/10/23 03/20/24 timolol maleate 0.5 % eye drops 1 drp ophthalmic (eye) 12/25/23 12/25/23 Previous Rx's ?Medication ?Instructions ?Recorded omeprazole 20 mg capsule,delayed 20 mg PO DAILY #90 caps 12/25/23 release simvastatin 40 mg tablet 40 mg PO .Bedtime #90 tabs 12/25/23 trazodone 50 mg tablet 100 mg (2 x 50 mg) PO .Bedtime 12/25/23 #180 tabs fluoxetine 10 mg capsule 10 mg PO QHS #90 caps 02/21/24 diphenoxylate-atropine 2.5 1 tab PO Q6-8H PRN diarrhea #20 03/11/24 mg-0.025 mg tablet (Lomotil) tabs diaper,brief,adult,disposable #15 ea 03/15/24 glycerin (adult) 1 supp SC DAILY PRN constipation 03/15/24 #12 ea polyethylene glycol 3350 17 17 g PO TID PRN #510 grams 03/15/24 gram/dose oral powder (Miralax) sodium phosphates 19 gram-7 118 ml SC DAILY PRN constipation 03/15/24 gram/118 mL enema (Fleet Enema) #532 mL Allergies Allergy/AdvReac Type Severity Reaction Status Date / Time No Known Allergies Allergy Verified 03/20/24 15:15 Review of Systems Status of ROS: Reports: 6 or more systems reviewed and unremarkable except as noted in History and below PFSH PFS Surgical History History of surgery on right wrist ?Z98.890 - Other specified postprocedural states (ICD-10) History of squamous cell carcinoma in situ (SCCIS) of skin ?Z86.007 - Personal history of in-situ neoplasm of skin (ICD-10) History of total knee replacement (2000) ?Z96.659 - Presence of unspecified artificial knee joint (ICD-10) History of tonsillectomy (~1950) ?Z90.89 - Acquired absence of other organs (ICD-10) Social History What is your current living situation?: I presently have a place to live Problems where you live: no known problems In the past 12 months, utilities in danger of being shut off: no In past 12 months, lack of transportation kept you from medical appts, meetings, work, or getting things needed for daily living: no In the past 12 mos, have been you worried that your food would run out before you had money to buy more?: never true In the past 12 mos, the food you bought just didn't last and you didn't have money to buy more?: never true Smoking Status: Never smoker Do you use any of these nicotine containing products: None How often do you have a drink containing alcohol: 4 or more times a week Alcohol type: beer How many standard drinks containing alcohol do you have on a typical day: 1 or 2 How often do you have six or more drinks on one occasion: Never AUDIT-C Alcohol total score: 4 Non-prescribed substance use: denies use Caffeine: No How often does anyone, including family, friends and others, physically hurt you : never How often does anyone, including family, friends and others, insult or talk down to you: never How often does anyone, including family, friends and others, threaten you with harm: never How often does anyone, including family, friends and others, scream or curse at you: never Little interest or pleasure in doing things: not at all Feeling down, depressed, or hopeless: not at all Exam Narrative: Exam Narrative: Pleasant. NAD. Seems a little tired. Converses easily. Dentition a little disheveled. Oropharynx is reasonably moist. No erythema. Lungs are clear. Is breathing easily. Heart in regular rate and rhythm. Abdomen is soft with normal bowel sounds. Nontender. No masses appreciated. Extremities are without edema. He is well-perfused. Const: Vital Signs, click to edit/add: Vital Signs - 24 hr 03/15/24 10:32 Temperature 97.0 F L Pulse Rate [Right] 77 Respiratory Rate 18 Blood Pressure [Ri ght Upper Arm] 107/66 Pulse Oximetry 96 Oxygen Delivery Me thod Room Air Documenting provider has reviewed patient's vital signs: yes Course Vital Signs Vital signs: Initial Vital Signs Temperature 97.0 F L 03/15/24 10:32 Temperature Source Temporal Artery Scan 03/15/24 10:32 Pulse Rate 77 03/15/24 10:32 Respiratory Rate 18 03/15/24 10:32 Blood Pressure 107/66 03/15/24 10:32 Blood Pressure Mean 79 03/15/24 10:32 Blood Pressure Position Sitting 03/15/24 10:32 Pulse Oximetry 96 03/15/24 10:32 Oxygen Delivery Method Room Air 03/15/24 10:32 Vital Signs Temperature 97.0 F L 03/15/24 10:32 Pulse Rate 77 03/15/24 10:32 Respiratory Rate 18 03/15/24 10:32 Blood Pressure 107/66 03/15/24 10:32 Pulse Oximetry 96 03/15/24 10:32 Oxygen Delivery Method Room Air 03/15/24 10:32 Temperature 97.0 F L 03/15/24 10:32 Pulse Rate 69 03/15/24 12:33 Respiratory Rate 16 03/15/24 12:32 Blood Pressure 141/71 H 03/15/24 12:32 Pulse Oximetry 98 03/15/24 12:33 Oxygen Delivery Method Room Air 03/15/24 12:32 Medications Administered Medications: Discontinued Medications Generic Name Dose Route Start Last Admin Trade Name Freq PRN Reason Stop Dose Admin Glycerin 1 supp 03/15/24 16:34 03/15/24 17:14 Glycerin Supp (Adult) SC 03/15/24 16:35 1 supp ONCE ONE Administration Medical Decision Making MDM Narrative Medical decision making narrative: No unusual food ingestions were described. This would seem to be a diarrhea of likely infectious etiology. C diff I suppose would be in the differential. Seems little atypical for inflammatory bowel disorder. Will check labs, electrolytes. Might give IV hydration. Labs are reassuring. Discussing course with him with frequent attempts at bowel movement producing small amount I review again history in entirety. Mr. Barrow is been rather distressed that we have not done anything for him. Wondering why we need stool collection for example. Dementia is clearly complicating this history in these events. Doing a rectal check reveals large amount of solid stool right inside the rectum. I think this makes much more sense; encopresis as opposed to what has been described as diarrhea. I decided to do a one view abdomen as well which does confirm a large amount of lower colonic/rectal stool by my read. Study:?XRay-Abdomen 1 VIEW SUPINE-03/15/2024 3:32:18 PM Ordering Physician:LEILANI Final Report: INDICATION: Possible constipation. TECHNIQUE: Abdomen 2 views. COMPARISON: None. FINDINGS: There are a few borderline dilated small bowel loops. There is fecal loading in the proximal colon and rectum. Soft tissues elsewhere as imaged are unremarkable. Degenerative changes of the spine. Bilateral hip arthroplasties. IMPRESSION: 1. Borderline dilated small bowel is nonspecific and can be further evaluated on clinical and/or radiographic follow-up, as indicated. 2. Fecal loading of the proximal colon and rectum. Is given a fleets here but does not really hold it. Is assisted by nursing then ultimately to remove a large amount of stool. Glycerin suppository placed. I do spend some time clarifying plan and detailing discharge instructions due to dementia. See patient discharge plan for further discussion/plan. Should be taking his Lomotil Lab Data Lab results reviewed: Yes I reviewed the patient's lab results Labs: Lab Results 03/15/24 03/15/24 Range/Units 11:50 12:05 WBC 8.94 (4.50-11.00) K/uL RBC 3.69 L (4.30-5.90) m/uL Hgb 12.2 L (13.5-17.5) gm/dL Hct 36.6 L (37.0-53.0) % MCV 99 (80-100) fL MCH 33 (26-34) pg MCHC 33 (32-36) gm/dL RDW Coeff of Astrid 12.2 (11.5-15.5) % Plt Count 169 (140-440) K/uL Neut % (Auto) 77.4 H (42.0-72.0) % Lymph % (Auto) 10.9 L (20-44) % [place] % (Auto) 11.3 H (0.0-11.0) % Eos % (Auto) 0.2 (0.0-7.0) % Baso % (Auto) 0.0 (0.0-3.0) % Neut # (Auto) 6.90 (1.7-7.0) K/uL Lymph # (Auto) 1.00 (0.90-2.90) K/uL [place] # (Auto) 1.00 H (0.00-0.90) K/UL Eos # (Auto) 0.02 (0.00-0.50) K/uL Baso # (Auto) 0.00 (0.00-0.30) K/uL Abs Immat Gran (auto) 0.02 (0.00-0.30) K/uL Imm/Tot Granulo (auto) 0.2 % ESR 44 H (2-15) mm/hr Sodium 134 L (135-149) mmol/L Potassium 5.1 (3.6-5.1) mmol/L Chloride 108 (96-114) mmol/L Carbon Dioxide 28 (20-32) mmol/L Anion Gap -2 L (7-15) mEq/L BUN 27 (7-30) mg/dL Creatinine 1.0 (0.5-1.5) mg/dL Estimated Creat Clear 63.15 Estimated GFR 74 ml/min Glucose 101 (60-115) mg/dL Calcium 9.2 (8.4-10.6) mg/dL Magnesium 1.7 (1.5-2.6) mg/dL C-Reactive Protein 4.8 H (0.5-1.0) mg/dL SARS-CoV-2 (PCR) Negative SARS-CoV-2 (Negative) Influenza Type A (PCR) Negative PCR FLU A (Negative) Influenza Type B (PCR) Negative PCR FLU B (Negative) Discharge Plan Discharge Clinical Impression: Fecal incontinence, Constipation Patient Disposition: Home, Self-Care Condition: Improved Additional Instructions: To be clear everything that was ordered to be sent to your pharmacy today is available for purchase cjki-jzz-dixrwek; without prescription. Focus on hydration drinking at least 2 L of water/liquid daily. Focus on eating fruits and vegetables. I do think you should wear these Attends/similar in the short term (over the next few days) as they will be much more absorbent than your underwear and pants. I would like you to dose MiraLax at least 3 times daily adjusting to stool consistency and continue over the next 2 weeks. Each dosing should be diluted in at least 8 oz of liquid. Stop the Benefiber for now. Stop the loperamide. Stop the Lomotil -- the prescription you got at last visit. You can let the suppository work overnight or you can place an enema and repeat if you do not get a large resulted in 1 hour. Over the next 2 nights, place glycerin suppository for continued effect. I am ordering a bottle of magnesium citrate. I would like you to take that tonight and if you do not have large bowel movement tomorrow take another bottle mid day. Prescriptions: New magnesium citrate [Citrate of Magnesia] Solution 300 ml PO DAILY PRN (Reason: constipation) Qty: 592 0RF polyethylene glycol 3350 [Miralax] 17 gram/dose powder 17 g PO TID PRNQty: 510 1RF glycerin (adult) Suppository 1 supp SC DAILY PRN (Reason: constipation) Qty: 12 0RF Fleet Enema 19-7 gram/118 mL enema 118 ml SC DAILY PRN (Reason: constipation) Qty: 532 0RF (DME) diaper,brief,adult,disposable Misc See Rx Instructions .Route Qty: 15 0RF Rx Instructions: As directed No Action NF-mxqmahnkqyk-taxbsz ox-zinc 500-750-1.5-25 opk-ng-mu-mg tablet,ext release multiphase PO BID latanoprost 0.005 % drops 1 drp ophthalmic (eye) .Bedtime brimonidine 0.2 % drops 1 drp ophthalmic (eye) BID cyanocobalamin (vitamin B-12) 500 mcg tablet 1,000 mcg PO DAILY omega-3 fatty acids 1,000 mg capsule 1,000 mg PO QDAY calcium carbonate-vitamin D3 600-125 mg-unit tablet 1,200 tab PO DAILY timolol maleate 0.25 % drops 1 drp ophthalmic (eye) ONCE pyridostigmine bromide 60 mg tablet 60 mg PO TID timolol maleate 0.5 % drops 1 drp ophthalmic (eye) Patient Comments: [NO ORIGINAL SIG] simvastatin 40 mg tablet 40 mg PO .Bedtime Qty: 90 3RF trazodone 50 mg tablet 100 mg PO .Bedtime Qty: 180 3RF omeprazole 20 mg capsule,delayed release(DR/EC) 20 mg PO DAILY Qty: 90 3RF diphenoxylate-atropine [Lomotil] 2.5-0.025 mg tablet 1 tab PO Q6-8H PRN (Reason: diarrhea) Qty: 20 0RF fluoxetine 10 mg capsule 10 mg PO QHS Qty: 90 2RF Follow Up/Referrals: Lizzie Aj MD [Primary Care Provider] - Stand Alone Forms: [facility] Info Instructions
--- OUTSIDE RECORDS SUMMARY | 2024-03-15 11:46 | XMS_ITS | Clinical Summary ---
Author Name Unknown Organization [facility] Address [address] [place] [address] Care Team Providers Care Production Control Planner Name Role Phone Lizzie Aj MD Primary Care Provider [phone]- [phone] Source Comments You are receiving this document as you are listed as the primary care provider,follow-up provider, or the patient has been referred to you for consultation.This is in compliance with the Medicare and[facility] EHR Incentive Program,which states Providers who [...] age to complete this topic Care Teams Production Control Planner Relationship Specialty Start Date End Date Lizzie Aj MD [address] [place] [address] PCP - General Internal Medicine 08/06/18
--- OUTSIDE RECORDS SUMMARY | 2024-03-15 11:46 | XMS_ITS | Clinical Summary ---
Author Name Unknown Organization [facility] Address [place], [place] [address] Care Team Providers Care Skin Care Instructor Name Role Phone Lizzie Aj MD Primary Care Provider [phone]- [phone] Allergies No known active allergies Medications Medication Sig Dispensed Refills Start Date End Date Status Gj-Wk-Wysffmb-Biotin -Vit D3-FA 200-450-400 mg-mcg-unit tab Take by mouth. 0 04/01/2014 Acti ve omega-3 fatty acids-vitamin E (FISH OIL) 1,000 mg cap Take by mouth. 0 04/01/2014 Active simvastatin (ZOCOR) 40 mg tablet Take 1 tablet by mouth at bedtime. 0 06/02/2016 Active Vit A,C,F-Ellc-Adjhfd (PRESERVISION AREDS) 14,320-226-200 rche-ff-pccb cap Take by mouth. 0 06/02/2016 Acti [...] Influenza for age 65+ 06/30/2024 Care Teams Skin Care Instructor Relationship Specialty Start Date End Date Lizzie Aj MD [address] [place] [address] PCP - General Internal Medicine 06/07/16
[2024-03-15 12:16] LABS: Eosinophils Absolute Auto 0.02 K/uL (0.00-0.50); Eosinophils Percent Auto 0.2 % (0.0-7.0); Hematocrit 36.6 % (37.0-53.0); Hemoglobin* 12.2 gm/dL (13.5-17.5); Immature Granulocytes Abs Auto 0.02 K/uL (0.00-0.30); Immature Granulocytes Pct Auto 0.2 %; Lymphocytes Percent Auto 10.9 % (20-44); Mean Corpuscular HGB Conc 33 gm/dL (32-36); Mean Corpuscular Hemoglobin 33 pg (26-34); Mean Corpuscular Volume 99 fL (80-100); Monocytes Percent Auto 11.3 % (0.0-11.0); Neutrophils Percent Auto 77.4 % (42.0-72.0); Platelet Count* 169 K/uL (140-440); RDW Coefficient of Variation % 12.2 % (11.5-15.5); Red Blood Count 3.69 m/uL (4.30-5.90); White Blood Count* 8.94 K/uL (4.50-11.00)
[2024-03-15 12:32] VITALS: BP 141/71; PULSE 73; RESP 16; O2SAT 97
[2024-03-15 12:33] VITALS: PULSE 69; O2SAT 98
[2024-03-15 12:35] LABS: Slide Review Reflex No
[2024-03-15 12:38] LABS: Chloride* 108 mmol/L (96-114); Potassium* 5.1 mmol/L (3.6-5.1); Sodium* 134 mmol/L (135-149)
[2024-03-15 12:41] LABS: Anion Gap -2 mEq/L (7-15); Blood Urea Nitrogen* 27 mg/dL (7-30); Carbon Dioxide* 28 mmol/L (20-32); Est. Creatinine Clearance* 63.15; Estimated Glomerular Filt Rate 74 ml/min
[2024-03-15 12:42] LABS: Calcium* 9.2 mg/dL (8.4-10.6); Glucose* 101 mg/dL (60-115); Magnesium* 1.7 mg/dL (1.5-2.6)
[2024-03-15 12:44] LABS: PCR FLU A Negative PCR FLU A (Negative); PCR FLU B Negative PCR FLU B (Negative); SARS PCR* Negative SARS-CoV-2 (Negative)
[2024-03-15 12:44] LABS: C Reactive Protein* 4.8 mg/dL (0.5-1.0)
[2024-03-15 14:11] LABS: Erythrocyte SedimentationRate* 44 mm/hr (2-15)
--- NOTE | 2024-03-15 15:02 | XR_ITS ---
Patient: CUATE THAYER Facility:?[facility] Patient ID:?[id number] Site Patient ID:?[id number]. Site :?[id number] Study:?XRay-Abdomen 1 VIEW SUPINE-03/15/2024 3:32:18 PM Ordering Physician:LEILANI Final Report: INDICATION: Possible constipation. TECHNIQUE: Abdomen 2 views. COMPARISON: None. FINDINGS: There are a few borderline dilated small bowel loops. There is fecal loading in the proximal colon and rectum. Soft tissues elsewhere as imaged are unremarkable. Degenerative changes of the spine. Bilateral hip arthroplasties. IMPRESSION: 1. Borderline dilated small bowel is nonspecific and can be further evaluated on clinical and/or radiographic follow-up, as indicated. 2. Fecal loading of the proximal colon and rectum. Dictated by Darrius Faustin MD @ 03/15/2024 3:40:59 PM (Electronic Signature)
[2024-03-15] MEDS: GLYCERIN SUPP (ADULT) 1 SUPP PR (17:14)
== END 2024-03-15 17:13 | disposition home or self-care (01) ==
PROVIDERS: Emergency Provider Family Medicine; PCP Internal Medicine
DX: R15.9 Full incontinence of feces (principal); K59.00 Constipation, unspecified
CPT/HCPCS: 36415; 74018; 80048; 83735; 85025; 85651; 86140; 87493; 87631; 99283; 99284; A9270

== ENCOUNTER 2024-03-20 14:53 | Emergency (ER) | payer MEDICARE, BC, SELFPAY ==
[2024-03-20 15:10] VITALS: BP 107/69; PULSE 73; RESP 16; TEMP 36.2; O2SAT 97; BMI 21.2
--- NOTE | 2024-03-20 15:57 | CRLHL7_ITS ---
For Patients: As a result of the Century Cures Act, medical imaging exams and procedure reports are released immediately into your electronic medical record. You may view this report before your referring provider. If you have questions, please contact your health care provider. Indication: Diffuse mild abdominal pain, constipation Technique: CT abdomen/pelvis with IV contrast, 82 mL Isovue 370 Comparison: None Findings: Lower thorax: Likely focal region of atelectasis/scarring involving the lateral aspect of the right lower lobe. Abdomen/pelvis: There are 2 well-circumscribed low-density subcentimeter hypodense lesions in the liver, likely benign cysts. Small focus of arterial enhancement seen in the right hepatic lobe (series number 2, image 16) incompletely characterized on this examination, but likely a benign entity such as a hemangioma. The gallbladder and biliary system, spleen, pancreas, adrenal glands, kidneys, ureters, and bladder are within normal limits in appearance. There is mild circumferential bladder wall thickening, may be secondary to underdistention or outlet obstruction. The prostate is not well evaluated secondary to beam hardening artifact from bilateral hip arthroplasties. The visualized external genitalia is within normal limits. There is no evidence of bowel obstruction or inflammation. The appendix measures 9 millimeters in diameter with wall thickening measuring up to approximately 3 millimeters. No periappendiceal inflammatory changes. No free fluid or free air. No abscess. No abdominopelvic lymphadenopathy. The vasculature is unremarkable for the patient`s age. Soft tissue/musculoskeletal: No acute fracture or malalignment. There is some degenerative changes seen throughout the spine. Postsurgical changes of bilateral hip arthroplasties. No suspicious osseous lesions. Impression: 1. No CT evidence of an acute process involving the abdomen or pelvis. 2. The appendix measures 9 millimeters in diameter with some mild wall thickening; however, there are no periappendiceal inflammatory changes to suggest acute appendicitis. 3. Likely focus of atelectasis/scarring involving the lateral aspect of the right lower lobe, and less likely a pulmonary nodule. Recommend correlation with prior imaging if available; otherwise, recommend CT chest in 3 months to reassess. Please note that all CT scans at this facility use dose modulation, iterative reconstruction, and/or weight-based dosing when appropriate to reduce radiation dose to as low as reasonably achievable. Dictated by Sven Guerrero MD @ 03/20/2024 4:57:24 PM (Electronically Signed)
--- OUTSIDE RECORDS SUMMARY | 2024-03-20 16:03 | XMS_ITS | Clinical Summary ---
[facility] Address [address] [place] [address] Care Team Providers Care Orthopedic Coder Name Role Phone Lizzie Aj MD Primary Care Provider [phone]- [phone] Source Comments You are receiving this document as you are listed as the primary care provider,follow-up provider, or the patient has been referred to you for consultation.This is in compliance with the Medicare and[facility] EHR Incentive Program,which states Providers who transition their patient to another setting of careor provider of care or refers their patient to another provider of care shouldprovide summary care record for each transition of care or referral. [facility] Allergies No known active allergies Medications Medication [...] age to complete this topic Care Teams Orthopedic Coder Relationship Specialty Start Date End Date Lizzie Aj MD [address] [place] [address] PCP - General Internal Medicine 08/06/18
--- OUTSIDE RECORDS SUMMARY | 2024-03-20 16:03 | XMS_ITS | Clinical Summary ---
Author Organization [facility] Address [place], [place] [address] Care Team Providers Care Residential Therapist Name Role Phone Lizzie Aj MD Primary Care Provider [phone]- [phone] Allergies No known active allergies Medications Medication Sig Dispensed Refills Start Date End Date Status Qg-Ls-Gftacma-Biotin -Vit D3-FA 200-450-400 mg-mcg-unit tab Take by mouth. 0 04/01/2014 Acti ve omega-3 fatty acids-vitamin E (FISH OIL) 1,000 mg cap Take by mouth. 0 04/01/2014 Active simvastatin (ZOCOR) 40 mg tablet Take 1 tablet by mouth at bedtime. 0 06/02/2016 Active Vit A,C,I-Birw-Iududk (PRESERVISION AREDS) 14,320-226-200 scnz-ni-xoxa cap Take by mouth. 0 06/02/2016 Acti [...] 04/25/2012 S/P hip replacement 04/20/2012 Overview: R, 6-- Insomnia, unspecified 04/20/2012 Hyperlipidemia 04/20/2012 DJD (degenerative [...] Influenza for age 65+ 06/30/2024 Care Teams Residential Therapist Relationship Specialty Start Date End Date Lizzie Aj MD [address] [place] [address] PCP - General Internal Medicine 06/07/16
[2024-03-20 16:27] LABS: Basophils Absolute Auto 0.01 K/uL (0.00-0.30); Basophils Percent Auto 0.2 % (0.0-3.0); Eosinophils Absolute Auto 0.03 K/uL (0.00-0.50); Eosinophils Percent Auto 0.6 % (0.0-7.0); Hematocrit 39.5 % (37.0-53.0); Hemoglobin* 13.1 gm/dL (13.5-17.5); Immature Granulocytes Abs Auto 0.05 K/uL (0.00-0.30); Immature Granulocytes Pct Auto 0.9 %; Lymphocytes Percent Auto 18.6 % (20-44); Mean Corpuscular HGB Conc 33 gm/dL (32-36); Mean Corpuscular Hemoglobin 33 pg (26-34); Mean Corpuscular Volume 98 fL (80-100); Monocytes Percent Auto 14.6 % (0.0-11.0); Neutrophils Absolute Auto 3.53 K/uL (1.7-7.0); Neutrophils Percent Auto 65.1 % (42.0-72.0); Platelet Count* 179 K/uL (140-440); Red Blood Count 4.02 m/uL (4.30-5.90); White Blood Count* 5.42 K/uL (4.50-11.00)
[2024-03-20 16:38] LABS: Albumin* 4.1 g/dL (3.3-5.0); Chloride* 110 mmol/L (96-114); Slide Review Reflex No
[2024-03-20 16:39] LABS: Potassium* 4.4 mmol/L (3.6-5.1); Sodium* 136 mmol/L (135-149)
[2024-03-20 16:41] LABS: Anion Gap -3 mEq/L (7-15); Aspartate Amino Transferase* 37 U/L (12-35); Bilirubin Total* 0.7 mg/dL (0.1-1.5); Carbon Dioxide* 29 mmol/L (20-32); Est. Creatinine Clearance* 59.98; Estimated Glomerular Filt Rate 74 ml/min
[2024-03-20 16:42] LABS: Alanine Aminotransferase* 27 U/L (4-50); Alkaline Phosphatase* 66 U/L (40-150); Blood Urea Nitrogen* 25 mg/dL (7-30); Calcium* 9.2 mg/dL (8.4-10.6); Glucose* 130 mg/dL (60-115); Total Protein* 7.1 g/dL (6.0-8.3)
--- NOTE | 2024-03-20 17:12 | ED_ITS ---
HPI - General Adult General Date Seen: 03/20/24 Chief complaint: Unspecified Complaint, Adult Stated complaint: Anal leakage Time Seen by Provider: 03/20/24 15:30 Source: patient Mode of arrival: ambulatory Limitations: no limitations History of Present Illness HPI narrative: Patient is an 83-year-old male presenting to the emergency department for fecal incontinence. He states over the past week he has been slowly leaking a small amount of stool from his anus constantly. He was initially seen over week ago and was given some anti diarrheal medication. He came back a few days later and at that time he will was found to be severely constipated and most likely this leakage was from the stools slowly leaking around the fecal impaction. He was cleared out at that time and was given laxatives. He took the laxatives until yesterday when he started having fully normal bowel movements again. Denies any difficulty with bowel movements over the past few days. Is still having a small bowel leakage in states he has to keep changing his underwear and going lock because will have about a half dollar size [place] in them with stool. Does states he has some very mild abdominal pain but does not see much different than normal. Denies fevers, chills, chest pain, shortness of breath, weakness, diarrhea, numbness, fevers, chills. No other concerns noted at this time Related Data Home Medications ?Medication ?Instructions ?Recorded ?Confirmed DW-bdazyyvapfk-cfnbeg ox-Zn ER 500 tab PO BID 04/26/22 12/25/23 mcg-750 mg-1.5 mg-25 mg tablet,ER brimonidine 0.2 % eye drops 1 drp ophthalmic (eye) BID 04/26/22 03/20/24 calcium carbonate-vitamin D3 600 1,200 tab PO DAILY 04/26/22 03/20/24 mg-125 unit tablet cyanocobalamin (vitamin B-12) 500 1,000 mcg PO DAILY 04/26/22 03/20/24 mcg tablet latanoprost 0.005 % eye drops 1 drp ophthalmic (eye) .Bedtime 04/26/22 03/20/24 omega-3 fatty acids 1,000 mg 1,000 mg PO QDAY 04/26/22 03/20/24 capsule pyridostigmine bromide 60 mg tablet 60 mg PO TID 08/10/23 03/20/24 timolol maleate 0.25 % eye drops 1 drp ophthalmic (eye) ONCE 08/10/23 03/20/24 timolol maleate 0.5 % eye drops 1 drp ophthalmic (eye) 12/25/23 12/25/23 Previous Rx's ?Medication ?Instructions ?Recorded omeprazole 20 mg capsule,delayed 20 mg PO DAILY #90 caps 12/25/23 release simvastatin 40 mg tablet 40 mg PO .Bedtime #90 tabs 12/25/23 trazodone 50 mg tablet 100 mg (2 x 50 mg) PO .Bedtime 12/25/23 #180 tabs fluoxetine 10 mg capsule 10 mg PO QHS #90 caps 02/21/24 diphenoxylate-atropine 2.5 1 tab PO Q6-8H PRN diarrhea #20 03/11/24 mg-0.025 mg tablet (Lomotil) tabs diaper,brief,adult,disposable #15 ea 03/15/24 glycerin (adult) 1 supp CA DAILY PRN constipation 03/15/24 #12 ea polyethylene glycol 3350 17 17 g PO TID PRN #510 grams 03/15/24 gram/dose oral powder (Miralax) sodium phosphates 19 gram-7 118 ml CA DAILY PRN constipation 03/15/24 gram/118 mL enema (Fleet Enema) #532 mL Allergies Allergy/AdvReac Type Severity Reaction Status Date / Time No Known Allergies Allergy Verified 03/20/24 15:15 Review of Systems Status of ROS: Reports: 10 or more systems reviewed and unremarkable except as noted in History and below PFSH PFS Surgical History History of surgery on right wrist ?Z98.890 - Other specified postprocedural states (ICD-10) History of squamous cell carcinoma in situ (SCCIS) of skin ?Z86.007 - Personal history of in-situ neoplasm of skin (ICD-10) History of total knee replacement (2000) ?Z96.659 - Presence of unspecified artificial knee joint (ICD-10) History of tonsillectomy (~1950) ?Z90.89 - Acquired absence of other organs (ICD-10) Social History What is your current living situation?: I presently have a place to live Problems where you live: no known problems In the past 12 months, utilities in danger of being shut off: no In past 12 months, lack of transportation kept you from medical appts, meetings, work, or getting things needed for daily living: no In the past 12 mos, have been you worried that your food would run out before you had money to buy more?: never true In the past 12 mos, the food you bought just didn't last and you didn't have money to buy more?: never true Smoking Status: Never smoker Do you use any of these nicotine containing products: None How often do you have a drink containing alcohol: 4 or more times a week Alcohol type: beer How many standard drinks containing alcohol do you have on a typical day: 1 or 2 How often do you have six or more drinks on one occasion: Never AUDIT-C Alcohol total score: 4 Non-prescribed substance use: denies use Caffeine: No How often does anyone, including family, friends and others, physically hurt you : never How often does anyone, including family, friends and others, insult or talk down to you: never How often does anyone, including family, friends and others, threaten you with harm: never How often does anyone, including family, friends and others, scream or curse at you: never Little interest or pleasure in doing things: not at all Feeling down, depressed, or hopeless: not at all Exam Narrative: Exam Narrative: Const: Well-nourished, Well-developed, in mild distress Eyes: PERRL, no conjunctival injection, and symmetrical lids HENT: Atraumatic external nose and ears. Moist mucous membranes. Neck: Symmetric, trachea midline, No thyromegaly. CVS: RRR, No murmurs or gallops. Peripheral pulses 2+ and equal in all extremities RESP: Unlabored respiratory effort. Clear to auscultation bilaterally. GI: Mild diffuse abdominal tenderness, Nondistended, No rebound or guarding. MSK:Extremities w/o deformity, Normal Active ROM Skin: Warm, Dry. No rashes or lesions. Neuro: Normal Muscle tone, No focal neurological deficits. Psych: Awake, Alert, & Oriented x3. Appropriate mood and affect. Const: Vital Signs, click to edit/add: Vital Signs - 24 hr 03/20/24 15:10 Temperature 97.1 F L Pulse Rate [Pulse Oximeter] 73 Respiratory Rate 16 Blood Pressure [Ri ght Upper Arm] 107/69 Pulse Oximetry 97 Oxygen Delivery Me thod Room Air Course Vital Signs Vital signs: Initial Vital Signs Temperature 97.1 F L 03/20/24 15:10 Temperature Source Temporal Artery Scan 03/20/24 15:10 Pulse Rate 73 03/20/24 15:10 Respiratory Rate 16 03/20/24 15:10 Blood Pressure 107/69 03/20/24 15:10 Blood Pressure Mean 81 03/20/24 15:10 Blood Pressure Position Sitting 03/20/24 15:10 Pulse Oximetry 97 03/20/24 15:10 Oxygen Delivery Method Room Air 03/20/24 15:10 Vital Signs Temperature 97.1 F L 03/20/24 15:10 Pulse Rate 73 03/20/24 15:10 Respiratory Rate 16 03/20/24 15:10 Blood Pressure 107/69 03/20/24 15:10 Pulse Oximetry 97 03/20/24 15:10 Oxygen Delivery Method Room Air 03/20/24 15:10 Temperature 97.1 F L 03/20/24 15:10 Pulse Rate 73 03/20/24 15:10 Respiratory Rate 16 03/20/24 15:10 Blood Pressure 107/69 03/20/24 15:10 Pulse Oximetry 97 03/20/24 15:10 Oxygen Delivery Method Room Air 03/20/24 15:10 Medical Decision Making MDM Narrative Medical decision making narrative: Patient is a 83-year-old male presenting for concern of incontinence. He is not having any associated back pain. CBC and BMP were ordered. Previously too soon x-ray was done with this time will do CT scan so we can fully see if he is still having issues with constipation causing this or if there is another abnormality. Lab work returned showing no concerning abnormalities. CT scan returned showing no acute processes. On my evaluation do not see any obvious obstruction or large amounts of constipation. Most likely will I believe happened is he was initially having the leakage around the impaction. That was cleared out and he was given stool softeners to continue to have normal bowel movements. From that he is now very soft stool that is still leaking from his anus due to it being stretched out for an extended period of time. I believe this will improve on its own over time. Do not believe any further intervention in the emergency department is warranted. He is not having any back pain or urinary retention. No saddle anesthesia. This seems very unlikely to be related to cauda equina syndrome. Will have him follow-up with his primary care provider if this persist. Lab Data Labs: Lab Results 03/20/24 Range/Units 16:10 WBC 5.42 (4.50-11.00) K/uL RBC 4.02 L (4.30-5.90) m/uL Hgb 13.1 L (13.5-17.5) gm/dL Hct 39.5 (37.0-53.0) % MCV 98 (80-100) fL MCH 33 (26-34) pg MCHC 33 (32-36) gm/dL RDW Coeff of Astrid 12.0 (11.5-15.5) % Plt Count 179 (140-440) K/uL Neut % (Auto) 65.1 (42.0-72.0) % Lymph % (Auto) 18.6 L (20-44) % Hubbard % (Auto) 14.6 H (0.0-11.0) % Eos % (Auto) 0.6 (0.0-7.0) % Baso % (Auto) 0.2 (0.0-3.0) % Neut # (Auto) 3.53 (1.7-7.0) K/uL Lymph # (Auto) 1.00 (0.90-2.90) K/uL Hubbard # (Auto) 0.80 (0.00-0.90) K/UL Eos # (Auto) 0.03 (0.00-0.50) K/uL Baso # (Auto) 0.01 (0.00-0.30) K/uL Abs Immat Gran (auto) 0.05 (0.00-0.30) K/uL Imm/Tot Granulo (auto) 0.9 % Sodium 136 (135-149) mmol/L Potassium 4.4 (3.6-5.1) mmol/L Chloride 110 (96-114) mmol/L Carbon Dioxide 29 (20-32) mmol/L Anion Gap -3 L (7-15) mEq/L BUN 25 (7-30) mg/dL Creatinine 1.0 (0.5-1.5) mg/dL Estimated Creat Clear 59.98 Estimated GFR 74 ml/min Glucose 130 H (60-115) mg/dL Calcium 9.2 (8.4-10.6) mg/dL Total Bilirubin 0.7 (0.1-1.5) mg/dL AST 37 H (12-35) U/L ALT 27 (4-50) U/L Alkaline Phosphatase 66 (40-150) U/L Total Protein 7.1 (6.0-8.3) g/dL Albumin 4.1 (3.3-5.0) g/dL Imaging Data CT scan abdomen and pelvis: Attestation: I have reviewed the pertinent imaging results. Radiologist's impression: 1. No CT evidence of an acute process involving the abdomen or pelvis. 2. The appendix measures 9 millimeters in diameter with some mild wall thic kening; however, there are no periappendiceal inflammatory changes to suggest acute appendicitis. 3. Likely focus of atelectasis/scarring involving the lateral aspect of the right lower lobe, and less likely a pulmonary nodule. Recommend correlation with prior imaging if available; otherwise, recommend CT chest in 3 months to reassess. Please note that all CT scans at this facility use dose modulation, iterative reconstruction, and/or weight-based dosing when appropriate to reduce radiation dose to as low as reasonably achievable. Dictated by Sven Guerrero MD @ 03/20/2024 4:57:24 PM Discharge Plan Discharge Clinical Impression: Fecal incontinence Qualifiers: Fecal incontinence type: unspecified Qualified Code(s): R15.9 - Full incontinence of feces Patient Disposition: Home, Self-Care Condition: Stable Instructions: Acute Diarrhea (ED) Additional Instructions: If symptoms seem to be persisting over the weekend follow-up with your primary care provider on Monday. Stop taking all stool softeners. Return to emergency department for new or worsening symptoms. Prescriptions: No Action JF-cgklzsvwnyt-gexhqp ox-zinc 500-750-1.5-25 eka-sy-oc-mg tablet,ext release multiphase PO BID latanoprost 0.005 % drops 1 drp ophthalmic (eye) .Bedtime brimonidine 0.2 % drops 1 drp ophthalmic (eye) BID cyanocobalamin (vitamin B-12) 500 mcg tablet 1,000 mcg PO DAILY omega-3 fatty acids 1,000 mg capsule 1,000 mg PO QDAY calcium carbonate-vitamin D3 600-125 mg-unit tablet 1,200 tab PO DAILY timolol maleate 0.25 % drops 1 drp ophthalmic (eye) ONCE pyridostigmine bromide 60 mg tablet 60 mg PO TID timolol maleate 0.5 % drops 1 drp ophthalmic (eye) Patient Comments: [NO ORIGINAL SIG] simvastatin 40 mg tablet 40 mg PO .Bedtime Qty: 90 3RF trazodone 50 mg tablet 100 mg PO .Bedtime Qty: 180 3RF omeprazole 20 mg capsule,delayed release(DR/EC) 20 mg PO DAILY Qty: 90 3RF diphenoxylate-atropine [Lomotil] 2.5-0.025 mg tablet 1 tab PO Q6-8H PRN (Reason: diarrhea) Qty: 20 0RF polyethylene glycol 3350 [Miralax] 17 gram/dose powder 17 g PO TID PRNQty: 510 1RF glycerin (adult) Suppository 1 supp CA DAILY PRN (Reason: constipation) Qty: 12 0RF Fleet Enema 19-7 gram/118 mL enema 118 ml CA DAILY PRN (Reason: constipation) Qty: 532 0RF (DME) diaper,brief,adult,disposable Misc See Rx Instructions .Route Qty: 15 0RF Rx Instructions: As directed fluoxetine 10 mg capsule 10 mg PO QHS Qty: 90 2RF Follow Up/Referrals: Lizzie Aj MD [Primary Care Provider] - Stand Alone Forms: [facility] Info Instructions
== END 2024-03-20 17:40 | disposition home or self-care (01) ==
PROVIDERS: Emergency Provider Student in an Organized Health Care Education/Training Program; PCP Internal Medicine
DX: R15.9 Full incontinence of feces (principal)
CPT/HCPCS: 36415; 74177; 80053; 85025; 99283; 99284; 99285; Q9967

== ENCOUNTER 2024-06-26 16:13 | Outpatient (CLI) | payer MEDICARE, BC, SELFPAY ==
--- OUTSIDE RECORDS SUMMARY | 2024-06-26 16:15 | XMS_ITS | Clinical Summary ---
[facility] Address [address] [place] [id number] Care Team Providers Care Glove Cuffer Name Role Phone Lizzie Aj MD Primary Care Provider [phone] Source Comments You are receiving this document as you are listed as the primary care provider,follow-up provider, or the patient has been referred to you for consultation.This is in compliance with the Medicare and[facility] EHR Incentive Program,which states Providers who transition their patient to another setting of careor provider of care or refers their patient to another provider of care shouldprovide summary care record for each transition of care or referral. [facility] Allergies No known active allergies Medications Medication [...] 04/20/2012 Hyperlipidemia 04/20/2012 S/P hip replacement 04/20/2012 Overview (08/22/2018): Overview: R, 04-16-12 Social History Tobacco Use [...] ( season) 2023 12/26/2020, 12/05/2020 Influenza (#1) 2024 08/25/2020, 04/2019, 08/29/2018, Additional history exists DTaP/Tdap/Td [...] age to complete this topic Care Teams Glove Cuffer Relationship Specialty Start Date End Date Lizzie Aj MD [address] [place] [address] PCP - General Internal Medicine 08/06/18
--- OUTSIDE RECORDS SUMMARY | 2024-06-26 16:15 | XMS_ITS | Clinical Summary ---
Author Organization [facility] Address [place], [place] [address] Care Team Providers Care Filling Carrier Name Role Phone Lizzie Aj MD Primary Care Provider [phone] Allergies No known active allergies Medications Medication Sig Dispensed Refills Start Date End Date Status Qo-Zw-Lhavicu-Biotin -Vit D3-FA 200-450-400 mg-mcg-unit tab Take by mouth. 0 04/01/2014 Acti ve omega-3 fatty acids-vitamin E (FISH OIL) 1,000 mg cap Take by mouth. 0 04/01/2014 Active simvastatin (ZOCOR) 40 mg tablet Take 1 tablet by mouth at bedtime. 0 06/02/2016 Active Vit A,C,C-Vkuk-Pzgzge (PRESERVISION AREDS) 14,320-226-200 wqno-pq-irpr cap Take by mouth. 0 06/02/2016 Acti [...] Influenza for age 65+ 06/30/2024 Care Teams Filling Carrier Relationship Specialty Start Date End Date Lizzie Aj MD [address] [place] [address] PCP - General Internal Medicine 06/07/16
== END 2024-06-26 16:14 | disposition home or self-care (01) ==
LOC: NFLDREF 16:13
PROVIDERS: PCP Internal Medicine; Visit Provider Internal Medicine
DX: T30.0 Burn of unspecified body region, unspecified degree (principal)
CPT/HCPCS: 87070; 87186

== ENCOUNTER 2024-06-27 07:04 | Emergency (ER) | payer MEDICARE, BC, SELFPAY ==
[2024-06-27 07:12] VITALS: BP 166/77; PULSE 78; RESP 16; TEMP 36.2; O2SAT 97; BMI 21.9
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
--- OUTSIDE RECORDS SUMMARY | 2024-06-27 07:54 | XMS_ITS | Clinical Summary ---
Author Organization [facility] Address [address] [place] [address] Care Team Providers Care Media Planner / Buyer Name Role Phone Lizzie Aj MD Primary Care Provider +1- [phone] Source Comments You are receiving this document as you are listed as the primary care provider,follow-up provider, or the patient has been referred to you for consultation.This is in compliance with the Medicare and[facility] EHR Incentive Program,which states Providers who transition their patient to another setting of careor provider of care or refers their patient to another provider of care shouldprovide summary care record for each transition of care or referral. [facility] Allergies No known active allergies Medications Medication [...] age to complete this topic Care Teams Media Planner / Buyer Relationship Specialty Start Date End Date Lizzie Aj MD [address] [place] [address] PCP - General Internal Medicine 08/06/18
--- OUTSIDE RECORDS SUMMARY | 2024-06-27 07:54 | XMS_ITS | Clinical Summary ---
Author Organization [facility] Address [place], [place] [address] Care Team Providers Care Director Of Revenue Cycle Management Name Role Phone Lizzie Aj MD Primary Care Provider +1- [phone] Allergies No known active allergies Medications Medication Sig Dispensed Refills Start Date End Date Status Xt-Pv-Fdmcpfx-Biotin -Vit D3-FA 200-450-400 mg-mcg-unit tab Take by mouth. 0 04/01/2014 Acti ve omega-3 fatty acids-vitamin E (FISH OIL) 1,000 mg cap Take by mouth. 0 04/01/2014 Active simvastatin (ZOCOR) 40 mg tablet Take 1 tablet by mouth at bedtime. 0 06/02/2016 Active Vit A,C,N-Xioy-Rdkvxj (PRESERVISION AREDS) 14,320-226-200 whqe-qe-mpbb cap Take by mouth. 0 06/02/2016 Acti [...] Influenza for age 65+ 06/30/2024 Care Teams Director Of Revenue Cycle Management Relationship Specialty Start Date End Date Lizzie Aj MD [address] [place] [address] PCP - General Internal Medicine 06/07/16
== END 2024-06-27 09:09 | disposition home or self-care (01) ==
PROVIDERS: Emergency Provider Family Medicine; PCP Internal Medicine
DX: L55.9 Sunburn, unspecified (principal)
CPT/HCPCS: 99283; 99284

== ENCOUNTER 2024-06-28 12:34 | Outpatient (CLI) | payer MEDICARE, BC, SELFPAY ==
--- OUTSIDE RECORDS SUMMARY | 2024-06-28 12:37 | XMS_ITS | Clinical Summary ---
Author Organization [facility] Address [address] [place] [address] Care Team Providers Care Shorthand Reporter Name Role Phone Lizzie Aj MD Primary Care Provider +1- [phone] Source Comments You are receiving this document as you are listed as the primary care provider,follow-up provider, or the patient has been referred to you for consultation.This is in compliance with the Medicare and[facility] EHR Incentive Program,which states Providers who transition their patient to another setting of careor provider of care or refers their patient to another provider of care shouldprovide summary care record for each transition of care or referral. [facility] Allergies No known active allergies Medications [...] age to complete this topic Care Teams Shorthand Reporter Relationship Specialty Start Date End Date Lizzie Aj MD [address] [place] [address] PCP - General Internal Medicine 08/06/18
--- OUTSIDE RECORDS SUMMARY | 2024-06-28 12:37 | XMS_ITS | Clinical Summary ---
Author Organization [facility] Address [place], [place] [address] Care Team Providers Care Geophysical Laboratory Director Name Role Phone Lizzie Aj MD Primary Care Provider +1- [phone] Allergies No known active allergies Medications Medication Sig Dispensed Refills Start Date End Date Status Lz-Xm-Bhntclx-Biotin -Vit D3-FA 200-450-400 mg-mcg-unit tab Take by mouth. 0 04/01/2014 Acti ve omega-3 fatty acids-vitamin E (FISH OIL) 1,000 mg cap Take by mouth. 0 04/01/2014 Active simvastatin (ZOCOR) 40 mg tablet Take 1 tablet by mouth at bedtime. 0 06/02/2016 Active Vit A,C,N-Ndpv-Ppgcxm (PRESERVISION AREDS) 14,320-226-200 ksof-vj-pqrt cap Take by mouth. 0 06/02/2016 Acti [...] Influenza for age 65+ 06/30/2024 Care Teams Geophysical Laboratory Director Relationship Specialty Start Date End Date Lizzie Aj MD [address] [place] [address] PCP - General Internal Medicine 06/07/16
== END 2024-06-28 12:35 | disposition home or self-care (01) ==
LOC: WOUND 12:36
PROVIDERS: PCP Internal Medicine; Visit Provider Nurse Practitioner Family
DX: T25.311A Burn of third degree of right ankle, initial encounter (principal); T24.331A Burn of third degree of right lower leg, initial encounter; T24.231A Burn of second degree of right lower leg, initial encounter; L55.1 Sunburn of second degree; L55.2 Sunburn of third degree
CPT/HCPCS: 16020; 16025; G0463

== ENCOUNTER 2024-07-04 09:16 | Outpatient (CLI) | payer MEDICARE, BC, SELFPAY ==
--- OUTSIDE RECORDS SUMMARY | 2024-07-04 09:17 | XMS_ITS | Clinical Summary ---
Author Organization [facility] Address [address] [place] [address] Care Team Providers Care Lead Based Paint Technician Name Role Phone Lizzie Aj MD Primary Care Provider +1- [phone] Source Comments You are receiving this document as you are listed as the primary care provider,follow-up provider, or the patient has been referred to you for consultation.This is in compliance with the Medicare and[facility] Health[facility] EHR Incentive Program,which states Providers who transition their patient to another setting of careor provider of care or refers their patient to another provider of care shouldprovide summary care record for each transition of care or referral. [facility] Allergies No known active allergies Medications Medication [...] age to complete this topic Care Teams Lead Based Paint Technician Relationship Specialty Start Date End Date Lizzie Aj MD [address] [place] [address] PCP - General Internal Medicine 08/06/18
--- OUTSIDE RECORDS SUMMARY | 2024-07-04 09:17 | XMS_ITS | Clinical Summary ---
Author Organization [facility] Address [address] [address], [place] [address] Care Team Providers Care Flume Maker Name Role Phone Lizzie Aj MD Primary Care Provider +1- [phone] Allergies No known active allergies Medications Medication Sig Dispensed Refills Start Date End Date Status Kp-Du-Wumzswy-Biotin -Vit D3-FA 200-450-400 mg-mcg-unit tab Take by mouth. 0 04/01/2014 Acti ve omega-3 fatty acids-vitamin E (FISH OIL) 1,000 mg cap Take by mouth. 0 04/01/2014 Active simvastatin (ZOCOR) 40 mg tablet Take 1 tablet by mouth at bedtime. 0 06/02/2016 Active Vit A,C,S-Efrx-Ueyuxk (PRESERVISION AREDS) 14,320-226-200 rmaj-pm-syzd cap Take by mouth. 0 06/02/2016 Acti [...] 06/02/2017 06/02/2016 COVID-19 vaccine series ( season) 2024 08/05/2021, 12/26/2020, 12/05/2020 Influenza for age 65+ 06/30/2024 Care Teams Flume Maker Relationship Specialty Start Date End Date Lizzie Aj MD [address] [place] [address] PCP - General Internal Medicine 06/07/16
== END 2024-07-04 09:17 | disposition home or self-care (01) ==
LOC: WOUND 09:16
PROVIDERS: PCP Internal Medicine; Visit Provider Nurse Practitioner Family
DX: T24.331A Burn of third degree of right lower leg, initial encounter (principal); T25.311A Burn of third degree of right ankle, initial encounter
CPT/HCPCS: 16020; 16025

== ENCOUNTER 2024-07-07 09:21 | Emergency (ER) | payer MEDICARE, BC, SELFPAY ==
[2024-07-07 09:44] VITALS: BP 127/58; PULSE 66; RESP 18; TEMP 36.6; O2SAT 97; BMI 21.2
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
--- OUTSIDE RECORDS SUMMARY | 2024-07-07 10:04 | XMS_ITS | Clinical Summary ---
[facility] Organization [facility] Address [address] [place] [address] Care Team Providers Care Mechanic Sound Technician Name Role Phone Lizzie Aj MD Primary Care Provider +1- [phone] Source Comments You are receiving this document as you are listed as the primary care provider,follow-up provider, or the patient has been referred to you for consultation.This is in compliance with the Medicare and[facility] Cent[facility] EHR Incentive Program,which states Providers who transition their patient to another setting of careor provider of care or refers their patient to another provider of care shouldprovide summary care record for each transition of care or referral. [facility] Allergies No known active allergies Medications Medication [...] Wellness Visit 1940 COVID-19 Vaccine ( season) 2024 12/26/2020, 12/05/2020 Influenza (#1) 2024 08/25/2020, 04/2019, [...] age to complete this topic Care Teams Mechanic Sound Technician Relationship Specialty Start Date End Date Lizzie Aj MD [address] [place] [address] PCP - General Internal Medicine 08/06/18
--- OUTSIDE RECORDS SUMMARY | 2024-07-07 10:04 | XMS_ITS | Clinical Summary ---
Author Organization [facility] Address [place], [place] [address] Care Team Providers Care Dry Primer Powder Blender Name Role Phone Lizzie Aj MD Primary Care Provider +1- [phone] Allergies No known active allergies Medications Medication Sig Dispensed Refills Start Date End Date Status Eb-Gz-Dyombgd-Biotin -Vit D3-FA 200-450-400 mg-mcg-unit tab Take by mouth. 0 04/01/2014 Activ e omega-3 fatty acids-vitamin E (FISH OIL) 1,000 mg cap Take by mouth. 0 04/01/2014 Active simvastatin (ZOCOR) 40 mg tablet Take 1 tablet by mouth at bedtime. 0 06/02/2016 Active Vit A,C,K-Iier-Jtqfty (PRESERVISION AREDS) 14,320-226-200 gxdh-ph-qvun cap Take by mouth. 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
== END 2024-07-07 10:10 | disposition home or self-care (01) ==
LOC: ED 10:02
PROVIDERS: Emergency Provider Family Medicine; PCP Internal Medicine
DX: Z48.00 Encounter for change or removal of nonsurgical wound dressing (principal)
CPT/HCPCS: 99282; 99283

== ENCOUNTER 2024-07-09 08:36 | Outpatient (CLI) | payer MEDICARE, BC, SELFPAY ==
--- OUTSIDE RECORDS SUMMARY | 2024-07-09 08:39 | XMS_ITS | Clinical Summary ---
Author [facility] Address [address] [place] [address] Care Team Providers Care Reinspector Name Role Phone Lizzie Aj MD Primary Care Provider +1- [phone] Source Comments You are receiving this document as you are listed as the primary care provider,follow-up provider, or the patient has been referred to you for consultation.This is in compliance with the Medicare and[facility] Hospital[facility] EHR Incentive Program,which states Providers who transition their patient to another setting of careor provider of care or refers their patient to another provider of care shouldprovide summary care record for each transition of care or referral. [facility] Allergies No known active allergies Medications Medication [...] age to complete this topic Care Teams Reinspector Relationship Specialty Start Date End Date Lizzie Aj MD [address] [place] [address] PCP - General Internal Medicine 08/06/18
--- OUTSIDE RECORDS SUMMARY | 2024-07-09 08:40 | XMS_ITS | Clinical Summary ---
Author Organization [employer] [facility] Address [place], [place] [address] Care Team Providers Care Photovoltaic Installer Name Role Phone Lizzie Aj MD Primary Care Provider +1- [phone] Allergies No known active allergies Medications Medication Sig Dispensed Refills Start Date End Date Status Wb-Qr-Inkwdfm-Biotin -Vit D3-FA 200-450-400 mg-mcg-unit tab Take by mouth. 0 04/01/2014 Activ e omega-3 fatty acids-vitamin E (FISH OIL) 1,000 mg cap Take by mouth. 0 04/01/2014 Active simvastatin (ZOCOR) 40 mg tablet Take 1 tablet by mouth at bedtime. 0 06/02/2016 Active Vit A,C,I-Qzij-Bscfzr (PRESERVISION AREDS) 14,320-226-200 arvr-fp-dzeh cap Take by mouth. 0 06/02/2016 Acti [...] for age 50+ (1 of 2) 1989 RSV vaccine for adults or pr egnancy (1 - 1-dose 60+ series) 1999 Pneumococcal series for age 65+ (1 of 1 - PCV) 2004 BMI (ht and wt on same day) for age 18+ 06/02/2017 06/02/2016 COVID-19 vaccine series (2022-24 season) 2024 08/05/2021, 12/26/2020, 12/05/2020 Influenza for age 65+ 06/30/2024 Care Teams Photovoltaic Installer Relationship Specialty Start Date End Date Lizzie Aj MD [address] [place] [address] PCP - General Internal Medicine 06/07/16
== END 2024-07-09 08:37 | disposition home or self-care (01) ==
PROVIDERS: PCP Internal Medicine; Visit Provider Nurse Practitioner Family
DX: T25.311A Burn of third degree of right ankle, initial encounter (principal); T24.331A Burn of third degree of right lower leg, initial encounter
CPT/HCPCS: G0463

== ENCOUNTER 2024-07-11 08:29 | Outpatient (CLI) | payer MEDICARE, BC, SELFPAY ==
--- OUTSIDE RECORDS SUMMARY | 2024-07-11 08:38 | XMS_ITS | Clinical Summary ---
Author Organization [employer] [facility] Address [place], [place] [address] Care Team Providers Care Layboy Operator Name Role Phone Lizzie Aj MD Primary Care Provider +1- [phone] Allergies No known active allergies Medications Medication Sig Dispensed Refills Start Date End Date Status Hn-Ui-Jjhsaws-Biotin -Vit D3-FA 200-450-400 mg-mcg-unit tab Take by mouth. 0 04/01/2014 Activ e omega-3 fatty acids-vitamin E (FISH OIL) 1,000 mg cap Take by mouth. 0 04/01/2014 Active simvastatin (ZOCOR) 40 mg tablet Take 1 tablet by mouth at bedtime. 0 06/02/2016 Active Vit A,C,B-Wkab-Mrrcyc (PRESERVISION AREDS) 14,320-226-200 pwgr-pt-jedx cap Take by mouth. 0 06/02/2016 Acti [...] Influenza for age 65+ 06/30/2024 Care Teams Layboy Operator Relationship Specialty Start Date End Date Lizzie Aj MD [address] [place] [address] PCP - General Internal Medicine 06/07/16
--- OUTSIDE RECORDS SUMMARY | 2024-07-11 08:38 | XMS_ITS | Clinical Summary ---
Author Organization [facility] Address [address] [place] [address] Care Team Providers Care Legal Services Professional Name Role Phone Lizzie Aj MD Primary Care Provider +1- [phone] Source Comments You are receiving this document as you are listed as the primary care provider,follow-up provider, or the patient has been referred to you for consultation.This is in compliance with the Medicare andSt. [facility] Hospital[facility] EHR Incentive Program,which states Providers who transition their patient to another setting of careor provider of care or refers their patient to another provider of care shouldprovide summary care record for each transition of care or referral. [facility] Allergies No known active [...] age to complete this topic Care Teams Legal Services Professional Relationship Specialty Start Date End Date Lizzie Aj MD [address] [place] [address] PCP - General Internal Medicine 08/06/18
== END 2024-07-11 08:30 | disposition home or self-care (01) ==
LOC: WOUND 08:30
PROVIDERS: PCP Internal Medicine; Visit Provider Nurse Practitioner Family
DX: T24.331A Burn of third degree of right lower leg, initial encounter (principal); T25.311A Burn of third degree of right ankle, initial encounter; T24.231A Burn of second degree of right lower leg, initial encounter
CPT/HCPCS: G0463

== ENCOUNTER 2024-07-18 08:25 | Outpatient (CLI) | payer MEDICARE, BC, SELFPAY ==
--- OUTSIDE RECORDS SUMMARY | 2024-07-18 08:27 | XMS_ITS | Clinical Summary ---
Author Organization [facility] [facility] Address [place], [place] [address] Care Team Providers Care Space And Storage Clerk Name Role Phone Lizzie Aj MD Primary Care Provider +1- [phone] Allergies No known active allergies Medications Medication Sig Dispensed Refills Start Date End Date Status Lm-Ln-Czrawno-Biotin -Vit D3-FA 200-450-400 mg-mcg-unit tab Take by mouth. 0 04/01/2014 Activ e omega-3 fatty acids-vitamin E (FISH OIL) 1,000 mg cap Take by mouth. 0 04/01/2014 Active simvastatin (ZOCOR) 40 mg tablet Take 1 tablet by mouth at bedtime. 0 06/02/2016 Active Vit A,C,E-Hsqs-Uitgaf (PRESERVISION AREDS) 14,320-226-200 wlcb-im-cfot cap Take by mouth. 0 06/02/2016 Acti [...] Influenza for age 65+ 06/30/2024 Care Teams Space And Storage Clerk Relationship Specialty Start Date End Date Lizzie Aj MD [address] [place] [address] PCP - General Internal Medicine 06/07/16
--- OUTSIDE RECORDS SUMMARY | 2024-07-18 08:27 | XMS_ITS | Clinical Summary ---
Author Organization [facility] Address [address] [place] [address] Care Team Providers Care Line Puller Name Role Phone Lizzie Aj MD Primary Care Provider +1- [phone] Source Comments You are receiving this document as you are listed as the primary care provider,follow-up provider, or the patient has been referred to you for consultation.This is in compliance with the Medicare and[facility] Hospital[facility]id EHR Incentive Program,which states Providers who transition their patient to another setting of careor provider of care or refers their patient to another provider of care shouldprovide summary care record for each transition of care or referral. [facility] Allergies No known active allergies Medications [...] Done Comments Medicare Annual Wellness Visit 1940 RSV (1 - 1-dose 75+ series) 2014 COVID-19 Vaccine ( season) 2024 12/26/2020, 12/05/2020 [...] age to complete this topic Care Teams Line Puller Relationship Specialty Start Date End Date Lizzie Aj MD [address] [place] [address] PCP - General Internal Medicine 08/06/18
== END 2024-07-18 08:26 | disposition home or self-care (01) ==
LOC: WOUND 08:25
PROVIDERS: PCP Internal Medicine; Visit Provider Nurse Practitioner Family
DX: T24.231A Burn of second degree of right lower leg, initial encounter (principal)
CPT/HCPCS: G0463

== ENCOUNTER 2024-07-25 08:24 | Outpatient (CLI) | payer MEDICARE, BC, SELFPAY ==
--- OUTSIDE RECORDS SUMMARY | 2024-07-25 08:29 | XMS_ITS | Clinical Summary ---
Author Organization [employer] [facility] Address [place], [place] [address] Care Team Providers Care Branch Operations Specialist Name Role Phone Lizzie Aj MD Primary Care Provider +1- [phone] Allergies No known active allergies Medications Medication Sig Dispensed Refills Start Date End Date Status Tw-Ic-Wjaifpn-Biotin -Vit D3-FA 200-450-400 mg-mcg-unit tab Take by mouth. 0 04/01/2014 Activ e omega-3 fatty acids-vitamin E (FISH OIL) 1,000 mg cap Take by mouth. 0 04/01/2014 Active simvastatin (ZOCOR) 40 mg tablet Take 1 tablet by mouth at bedtime. 0 06/02/2016 Active Vit A,C,L-Inon-Omsjbm (PRESERVISION AREDS) 14,320-226-200 feda-qe-fqqd cap Take by mouth. 0 06/02/2016 Acti [...] Influenza for age 65+ 06/30/2024 Care Teams Branch Operations Specialist Relationship Specialty Start Date End Date Lizzie Aj MD [address] [place] [address] PCP - General Internal Medicine 06/07/16
--- OUTSIDE RECORDS SUMMARY | 2024-07-25 08:29 | XMS_ITS | Clinical Summary ---
[facility] Address [address] [place] [address] Care Team Providers Care Cleaning Associate Name Role Phone Lizzie Aj MD Primary Care Provider +1- [phone] Source Comments You are receiving this document as you are listed as the primary care provider,follow-up provider, or the patient has been referred to you for consultation.This is in compliance with the Medicare and[facility] EHR Incentive Program,which states Providers who transition their patient to another setting of careor provider of care or refers their patient to another provider of care shouldprovide summary care record for each transition of care or referral. [facility] Allergies No known active allergies Medications [...] age to complete this topic Care Teams Cleaning Associate Relationship Specialty Start Date End Date Lizzie Aj MD [address] [place] [address] PCP - General Internal Medicine 08/06/18
== END 2024-07-25 08:25 | disposition home or self-care (01) ==
LOC: WOUND 08:25
PROVIDERS: PCP Internal Medicine; Visit Provider Nurse Practitioner Family
DX: Z09 Encounter for follow-up examination after completed treatment for conditions other than malignant neoplasm (principal); Z87.828 Personal history of other (healed) physical injury and trauma
CPT/HCPCS: G0463

== ENCOUNTER 2024-09-04 10:36 | Outpatient (CLI) | payer MEDICARE, BC, SELFPAY ==
--- OUTSIDE RECORDS SUMMARY | 2024-09-04 10:39 | XMS_ITS | Clinical Summary ---
Author Organization [facility] Address [address] [place] [address] Care Team Providers Care Networks Computer Consultant Name Role Phone Lizzie Aj MD Primary Care Provider +1- [phone] Source Comments You are receiving this document as you are listed as the primary care provider,follow-up provider, or the patient has been referred to you for consultation.This is in compliance with the Medicare and[facility] EHR Incentive Program,which states Providers who [...] on patient's age to complete this topic Infant RSV Aged Out No longer eligi ble based on patient's age to complete this topic MCV4 Aged Out No longer eligi ble based on patient's age to complete this topic Care Teams Networks Computer Consultant Relationship Specialty Start Date End Date Lizzie Aj MD [address] [place] [address] PCP - General Internal Medicine 08/06/18
--- OUTSIDE RECORDS SUMMARY | 2024-09-04 10:39 | XMS_ITS | Clinical Summary ---
Author Organization [employer] [facility] Address [place], [place] [address] Care Team Providers Care Gas Appliance Servicer Name Role Phone Lizzie Aj MD Primary Care Provider +1- [phone] Allergies No known active allergies Medications Medication Sig Dispensed Refills Start Date End Date Status Mi-Bw-Rmpvsni-Biotin -Vit D3-FA 200-450-400 mg-mcg-unit tab Take by mouth. 0 04/01/2014 Activ e omega-3 fatty acids-vitamin E (FISH OIL) 1,000 mg cap Take by mouth. 0 04/01/2014 Active simvastatin (ZOCOR) 40 mg tablet Take 1 tablet by mouth at bedtime. 0 06/02/2016 Active Vit A,C,U-Sukk-Yeqbny (PRESERVISION AREDS) 14,320-226-200 rzmc-xw-jmkq cap Take by mouth. 0 06/02/2016 Acti [...] 65+ (1 of 1 - PCV) 2004 RSV vaccine for adults or pr egnancy (1 - 1-dose 75+ series) 2014 BMI (ht and wt on same day) for age 18+ 06/02/2017 06/02/2016 COVID-19 vaccine series ( season) 2024 08/05/2021, 12/26/2020, 12/05/2020 Influenza for age 65+ 06/30/2024 Care Teams Gas Appliance Servicer Relationship Specialty Start Date End Date Lizzie Aj MD [address] [place] [address] PCP - General Internal Medicine 06/07/16
--- NOTE | 2024-09-04 11:00 | CT_ITS ---
Patient: CUATE THAYER Facility:?[facility] Patient ID:?[id number] Site Patient ID:?[id number]. Site :?[id number] Study:?CT-Chest W/O-09/04/2024 11:00:52 AM Ordering Physician:Tj Samuel Final Report: INDICATION: Atelectasis. TECHNIQUE: CT chest without contrast. COMPARISON: CT May 02, 2012 and abdomen and pelvis February 2024 FINDINGS: Lungs and pleura: There is re-demonstration of pleural base atelectasis along the lateral right lower lobe measuring about 1.1 centimeter. There is adjacent focal pleural thickening and healed right rib fracture. Stable bilateral apical nodule measuring 7 millimeter at the right upper lobe (3/21) and 7 millimeter at the left upper lobe (3/20), unchanged since 2011. No new or concerning pulmonary nodules are identified. Central airways are patent. Pleural minimal right apical thickening/scarring has been stable since 2011. Subsegmental atelectasis in the lingula. Heart and vasculature: Heart size is normal. Thoracic aorta and pulmonary artery are normal in caliber. Mitral annular calcification. Lymph nodes/mediastinum: No mediastinal, or limited assessment of hilar lymph nodes a noncontrast exam. Axillary adenopathy. Chest wall: No masses. Upper abdomen: No significant findings. Bones: There is anterior wedging compression fracture of L1 with height loss of about 80 percent, new in comparison to previous CT from February 2024. Multilevel moderate degenerative changes of the spine are present. Healed right-sided rib fractures. IMPRESSION: Chronic atelectasis/scarring along the right lateral lower lobe and stable biapical lung nodule of 7 millimeters since 2011. No new or suspicious lung nodule. Anterior wedging compression of L1 with height loss of 80 percent, new in comparison to previous CT from February 2024. Please note that all CT scans at this facility use dose modulation, iterative reconstruction, and/or weight-based dosing when appropriate to reduce radiation dose to as low as reasonably achievable. Dictated by Wilda Santos MD @ 09/05/2024 8:26:43 AM Signed by:?Wilda Santos MD @09/05/2024 8:26:43 AM (Electronic Signature)
== END 2024-09-04 10:37 | disposition home or self-care (01) ==
LOC: CT 10:38
PROVIDERS: PCP Internal Medicine; Visit Provider Internal Medicine
DX: J98.11 Atelectasis (principal); R91.1 Solitary pulmonary nodule; M48.56XA Collapsed vertebra, not elsewhere classified, lumbar region, initial encounter for fracture
CPT/HCPCS: 71250

== ENCOUNTER 2024-12-23 10:05 | Outpatient (CLI) | payer MEDICARE, BC, SELFPAY | END 2024-12-23 10:06 | disposition home or self-care (01) | LOC: NFLDREF 12-25 01:26 | PROVIDERS: PCP Internal Medicine; Referring Provider Internal Medicine; Visit Provider Internal Medicine | DX: D47.2 Monoclonal gammopathy (principal); E78.5 Hyperlipidemia, unspecified; R79.89 Other specified abnormal findings of blood chemistry; I95.1 Orthostatic hypotension | CPT/HCPCS: 80053; 80061; 83520; 84165 ==